=== PATIENT | male | born 1985 | race Caucasian/White ===

== ENCOUNTER → 2019-12-07 18:53 | Outpatient (BNVA) | payer OTHER, SELFPAY | PROVIDERS: Family Provider Nurse Practitioner Family; PCP Nurse Practitioner Family; Visit Provider Nurse Practitioner Family | DX: J02.9 Acute pharyngitis, unspecified (principal); J03.90 Acute tonsillitis, unspecified | CPT/HCPCS: 87081; 87880 ==

== ENCOUNTER → 2020-01-08 13:49 | Outpatient (BNVA) | payer OTHER, SELFPAY | PROVIDERS: Family Provider Nurse Practitioner Family; PCP Nurse Practitioner Family; Visit Provider Nurse Practitioner Family | DX: M54.9 Dorsalgia, unspecified (principal); S39.012A Strain of muscle, fascia and tendon of lower back, initial encounter; X58.XXXA Exposure to other specified factors, initial encounter | CPT/HCPCS: 81003 ==

== ENCOUNTER → 2020-01-18 13:15 | Outpatient (BNVA) | payer OTHER, SELFPAY | PROVIDERS: Family Provider Nurse Practitioner Family; PCP Nurse Practitioner Family; Referring Provider Nurse Practitioner Family; Visit Provider Nurse Practitioner Family | DX: J02.9 Acute pharyngitis, unspecified (principal); H66.92 Otitis media, unspecified, left ear; J06.9 Acute upper respiratory infection, unspecified; B97.89 Other viral agents as the cause of diseases classified elsewhere | CPT/HCPCS: 87081; 87880 ==

== ENCOUNTER → 2020-10-22 11:06 | Outpatient (BNVA) | payer OTHER, SELFPAY | PROVIDERS: Family Provider Nurse Practitioner Family; PCP Nurse Practitioner Family; Visit Provider Urology | DX: R79.89 Other specified abnormal findings of blood chemistry (principal); N52.9 Male erectile dysfunction, unspecified | CPT/HCPCS: 81003; 84403 ==

== ENCOUNTER 2021-01-16 11:50 | Outpatient (CLI) | payer OTHER, SELFPAY ==
--- NOTE | 2021-01-16 11:55 | XR_ITS ---
WS: [id number] XR knee LT 3V* [id number] REASON FOR EXAM: PAIN L KNEE FINDINGS: Moderate narrowing of the medial knee joint space with a shift of the femoral condyles medially. Sign ificant marginal osteophytes of the medial femoral condyle and medial tibial plateau. Previous surgical procedure with large threaded device in the medial metadiaphysis of the tibia with what appears to be a tendon tunnel. Possibly this was in relation to the posterior cruciate as the ch anges are in the posterior tibia on the lateral. There is narrowing of the patellofemoral joint space with significant osteophytes of the patella and medial femoral condyle. XR/XR knee LT 3V* [id number] IMPRESSION: Osteoarthritis and postsurgical change in the left kidney as above.
== END 2021-01-16 11:51 | disposition home or self-care (01) ==
LOC: RAD 11:52
PROVIDERS: PCP Nurse Practitioner Family; Visit Provider Nurse Practitioner Family
DX: M17.12 Unilateral primary osteoarthritis, left knee
CPT/HCPCS: 73562

== ENCOUNTER 2021-04-14 08:49 | Outpatient (CLI) | payer OTHER, SELFPAY ==
--- NOTE | 2021-04-14 09:05 | XR_ITS ---
WS: [id number] Exam: XR chest 2V* [id number] Date/Time of Exam: 04/14/2021 9:21 AM Reason For Exam: ASTHMATIC BRONCHITIS/COUGH Findings: The lungs are clear and fully expanded. Costophrenic angles are sharp. No infiltrates. Bronchovascula r relief appears normal. Cardiac silhouette is unremarkable. Bony elements are intact. XR/XR chest 2V* [id number] IMPRESSION: Unremarkable chest radiograph.
== END 2021-04-14 08:50 | disposition home or self-care (01) ==
PROVIDERS: PCP Nurse Practitioner Family; Visit Provider Nurse Practitioner Family
DX: R05 Cough (principal); J45.909 Unspecified asthma, uncomplicated
CPT/HCPCS: 71046

== ENCOUNTER → 2021-04-22 13:52 | Outpatient (BNVA) | payer OTHER, SELFPAY | PROVIDERS: PCP Nurse Practitioner Family; Visit Provider Urology | DX: Z12.5 Encounter for screening for malignant neoplasm of prostate (principal); R79.89 Other specified abnormal findings of blood chemistry; N52.9 Male erectile dysfunction, unspecified | CPT/HCPCS: 81003; 84403; G0103 ==

== ENCOUNTER 2021-05-11 16:13 | Outpatient (CLI) | payer OTHER, SELFPAY ==
[2021-05-11 16:31] LABS: Basophils # 0.1 10^3/uL (0.0-0.1); Basophils % 0.6 %; Eosinophils # 0.3 10^3/uL (0.0-0.8); Eosinophils % 2.6 %; Hematocrit 53.9 % (42.0-52.0); Hemoglobin 18.4 g/dL (11.7-16.6); Lymphocytes # 2.6 10^3/uL (0.8-4.8); Lymphocytes % 24.4 %; Mean Corpuscular HGB Conc 34.1 g/dL (30.0-36.0); Mean Corpuscular Hemoglobin 32.7 pg (28.0-34.0); Mean Corpuscular Volume 95.7 fL (80-94); Mean Platelet Volume 9.3 fL (7.4-10.4); Monocytes # 0.8 10^3/uL (0.2-0.9); Monocytes % 7.3 %; Neutrophils # 6.83 10^3/uL (1.8-7.7); Neutrophils % 64.6 %; Nucleated Red Blood Cells % 0 %; Platelet Count 213 10^3/cmm (130-400); Red Blood Count 5.63 10^6/uL (4.1-5.3); Red Cell Distribution Width 12.7 % (12.1-15.1); White Blood Count 10.6 10^3/uL (4.0-10.0)
[2021-05-12 17:27] LABS: Alternaria Alternata (M6) Ige <0.10 kU/L; Alternaria Class 0; Bermuda Class 0/1; Bermuda Grass (G2) Ige 0.17 kU/L; Cat Dander (E1) Ige <0.10 kU/L; Cat Dander Class 0; Common Ragweed (Short) (W1) Ig 1.31 kU/L; D. Farinae Class 3; Dermatophagoides Class 3; Dermatophagoides Farinae (D2) 8.45 kU/L; Dog Dander (E5) Ige <0.10 kU/L; Dog Dander Class 0; Elm (T8) Ige <0.10 kU/L; Elm Class 0; English Plantain (W9) Ige 0.12 kU/L; English Plantain Class 0/1; House Dust (Greer) (H1) Ige 0.57 kU/L; House Dust (Hollister- Stier) 0.56 kU/L; House Dust Class 1; Immunoglobulin E 212 kU/L (<OR=114); Immunoglobulin E 223 kU/L (<OR=114); Johnson Grass (G10) Ige 0.36 kU/L; Johnson Grass Cl 1; June Grass Class 2; June Grass(Kentucky Blue) (G8) 1.96 kU/L; Lamb'S Quarters (Goose Foot) 0.28 kU/L; Lamb'S Quarters Class 0/1; Maple (Box Elder) (T1) Ige <0.10 kU/L; Maple Class 0; Meadow Fescue (G4) Ige 2.02 kU/L; Meadow Fescue Class 2; Mucor Racemosus Class 0; Oak (T7) Ige <0.10 kU/L; Oak Class 0; Orchard Grass (Cocksfoot) (G3) 1.79 kU/L; Penicillium Class 0; Penicillium Notatum (M1) Ige <0.10 kU/L; Perennial Rye Grass (G5) Ige 1.89 kU/L; Perennial Rye Grass Class 2; Ragweeed Class 2; Rough Marsh Elder (W16) Ige 0.19 kU/L; Rough Marsh Elder Class 0/1; Sweet Vernal Class 2; Sweet Vernal Grass (G1) Ige 1.83 kU/L; Timothy Grass (G6) Ige 1.83 kU/L; Timothy Grass Class 2
[2021-05-13 20:17] LABS: Aspergillus Fumigatus, Igg Ab, 38.5 mg/L (<=102)
== END 2021-05-11 16:14 | disposition home or self-care (01) ==
LOC: LAB 16:15
PROVIDERS: PCP Nurse Practitioner Family; Visit Provider Internal Medicine Critical Care Medicine
DX: J45.909 Unspecified asthma, uncomplicated (principal); R06.02 Shortness of breath
CPT/HCPCS: 36415; 82785; 85025; 86003

== ENCOUNTER 2021-07-30 14:45 | Outpatient (CLI) | payer OTHER, SELFPAY | END 2021-07-30 14:46 | disposition home or self-care (01) | LOC: SLEEP 14:46 | PROVIDERS: PCP Nurse Practitioner Family; Visit Provider Internal Medicine Critical Care Medicine | DX: G47.10 Hypersomnia, unspecified (principal) | CPT/HCPCS: G0399 ==

== ENCOUNTER 2022-03-26 11:38 | Outpatient (CLI) | payer SELFPAY | END 2022-03-26 11:39 | disposition home or self-care (01) | PROVIDERS: PCP Nurse Practitioner Family; Visit Provider Nurse Practitioner Family | DX: R79.89 Other specified abnormal findings of blood chemistry (principal) | CPT/HCPCS: 84403 ==

== ENCOUNTER → 2023-10-26 08:23 | Outpatient (BNVA) | payer OTHER, SELFPAY | PROVIDERS: PCP Nurse Practitioner Family; Visit Provider Family Medicine Adult Medicine | DX: S69.92XA Unspecified injury of left wrist, hand and finger(s), initial encounter (principal); W29.8XXA Contact with other powered hand tools and household machinery, initial encounter | CPT/HCPCS: 73140 ==

== ENCOUNTER 2023-11-07 06:14 | Emergency (ER) | payer OTHER, SELFPAY ==
[2023-11-07 06:29] VITALS: BP 169/97; PULSE 101; RESP 17; O2SAT 95; BMI 32.5
--- NOTE | 2023-11-07 06:32 | W.ED.GENADLT ---
HPI - General Adult General: Chief complaint: GI Bleed Stated complaint: Blood in stool/when wiping Time Seen by Provider: 11/07/23 06:26 Source: patient Mode of arrival: ambulatory History of Present Illness: 38-year-old male who presents emergency room complaining of bright red blood on toilet paper after a bowel movement. No discoloration of the toilet bowl water. Symptoms began yesterday. No dysuria urgency or frequency. No previous abdominal surgeries no previous colonoscopies. Onset (ago): day(s) (1) Relieving factors: none Exacerbating factors: other (Bowel movement) Associated symptoms: Deny chest pain, confusion, cough, diaphoresis, decreased appetite, dyspnea, fevers/chills, headache(s), malaise, nausea, rash, palpitations, seizures, short of breath, syncope, vomiting or weakness Treatments prior to arrival: none Review of Systems Const: Denies: fever(s), chills, malaise or diaphoresis Card: Denies: chest pain, palpitations or syncope Resp: Denies: dyspnea GI: Reports: hematochezia (Blood onto the paper after wiping); Denies: abdominal pain, nausea or vomiting : Denies: flank pain, dysuria, urinary frequency, urinary urgency or hematuria Musc: Denies: neck pain or back pain Skin/Breast: Denies: rash Neuro: Denies: headache(s) or confusion PFSH ED PFSH: Medical History Injury of finger of left hand Erectile dysfunction of organic origin On SILDENAFIL with no contraindications. Benefit noted. Low testosterone in male On TRT 200 mg every 10 to 14 days with good response and safe laboratory level in follow-up. Surgical History Hx of left knee surgery Family History Father Suicide Social History Smoking and tobacco/nicotine status: current every day tobacco/nicotine user cigarettes Packs smoked per day: 0.5 Years cigarettes smoked: 20 Second hand smoke exposure: Yes Alcohol intake: current Alcohol intake frequency: few times a week Alcohol type: beer and hard liquor Substance/Drug Use: never Adopted: No Caregiver/support person: No Lives independently: Yes Marital status: Current occupational status: employed Do you think of yourself as: Straight/Heterosexual Current gender identity: Male Physical Exam Const: COMMON NORMALS: no acute distress GENERAL APPEARANCE: cooperative and comfortable ORIENTATION/CONSCIOUSNESS: Yes awake, Yes oriented to person, Yes oriented to place and Yes oriented to time HENMT: COMMON NORMALS: normocephalic, atraumatic and hearing grossly normal bilaterally HEAD & SCALP: normocephalic and atraumatic Resp: COMMON NORMALS: normal respiratory effort, No retractions, No use of accessory muscles and clear to auscultation bilaterally AUSCULTATION: clear to auscultation bilaterally Cardio: COMMON NORMALS: regular rate, regular rhythm and No murmurs present (Cardio) RATE: regular rate RHYTHM: regular rhythm GI: COMMON NORMALS: Soft to palpation and No hepatosplenomegaly present AUSCULTATION: Yes normoactive bowel sounds PALPATION: Yes Soft to palpation, No Tenderness to palpation present (GI), No Guarding due to palpation present (GI) and Yes No hepatosplenomegaly present : OTHER: Examination of the rectum small anal fissure at the 6 o'clock position no active bleeding small hemorrhoidal tag and no swollen or thrombosed hemorrhoids no actively bleeding hemorrhoids Extremity: COMMON NORMALS: normal to inspection, capillary refill normal, no clubbing, cyanosis or edema, no calf tenderness and no pedal edema Neuro: SENSORIUM/ORIENTATION: Yes oriented to person, Yes oriented to place and Yes oriented to time Skin: COMMON NORMALS: no rashes or lesions noted GENERAL SKIN EXAM: no rashes or lesions noted Course Vital Signs: Vital signs: Vital Signs Pulse Rate 101 H 11/07/23 06:29 Respiratory Rate 18 11/07/23 06:54 Blood Pressure 167/97 11/07/23 06:54 Pulse Oximetry 91 11/07/23 06:54 Oxygen Delivery Me thod Room Air 11/07/23 06:54 MDM - General Adult Medical Decision Making Small rectal fissure noted at the 6 o'clock position on exam it is partially healed. This could be the source of bleeding he could also have mild diverticuli he has not previously to colonoscopy. He is currently on amoxicillin for recently diagnosed strep pharyngitis. Will switch him to Augmentin. His hemoglobin is stable at this point. Will discharge the patient home and have him follow-up with his primary care doctor in a few weeks to evaluate for the possibility of colonoscopy. Continue all other medications. Medical Records I reviewed the patient's medical records. Lab Data I reviewed the patient's lab results. 11/07/23 06:40 11/07/23 06:40 Laboratory Results WBC 17.15 10^3/uL (3.29-11.43) H 11/07/23 06:40 RBC 5.41 10^6/uL (3.85-5.65) 11/07/23 06:40 Hgb 15.90 g/dL (11.27-16.99) 11/07/23 06:40 Hct 48.0 % (37-53) 11/07/23 06:40 MCV 88.7 fl (82-101) 11/07/23 06:40 MCH 29.4 pg (27-33) 11/07/23 06:40 MCHC 33.1 g/dL (30-55) 11/07/23 06:40 RDW 12.7 % (12.1-15.1) 11/07/23 06:40 Plt Count 335 10^3/cmm (157-399) 11/07/23 06:40 MPV 9.3 fL (7.4-10.4) 11/07/23 06:40 Neut % (Auto) 85.2 % 11/07/23 06:40 Lymph % (Auto) 9.5 % 11/07/23 06:40 Becker % (Auto) 4.3 % 11/07/23 06:40 Eos % (Auto) 0.0 % 11/07/23 06:40 Baso % (Auto) 0.2 % 11/07/23 06:40 Neut # (Auto) 14.62 10^3/uL (1.8-7.7) H 11/07/23 06:40 Lymph # (Auto) 1.6 10^3/uL (0.8-4.8) 11/07/23 06:40 Becker # (Auto) 0.7 10^3/uL (0.2-0.9) 11/07/23 06:40 Eos # (Auto) 0.0 10^3/uL (0.0-0.8) 11/07/23 06:40 Baso # (Auto) 0.0 10^3/uL (0.0-0.1) 11/07/23 06:40 Nucleated RBC % (auto) 0 % 11/07/23 06:40 Nucleated RBCs # 0.0 /100WBC 11/07/23 06:40 Sodium 137 mmol/L (136-145) 11/07/23 06:40 Potassium 4.3 mmol/L (3.5-5.1) 11/07/23 06:40 Chloride 103 mmol/L (98-107) 11/07/23 06:40 Carbon Dioxide 26 mmol/L (22-29) 11/07/23 06:40 Anion Gap 12.3 (5-19) 11/07/23 06:40 Creatinine 0.9 mg/dL (0.7-1.2) 11/07/23 06:40 GFR Calculation 93.5 mL/min (90-130) 11/07/23 06:40 Calculated Osmolality 292 mOsm/kg (285-295) 11/07/23 06:40 Calcium 10.3 mg/dL (8.5-10.5) 11/07/23 06:40 Total Bilirubin 0.3 mg/dL (0.15-1.2) 11/07/23 06:40 AST 13 U/L (0-40) 11/07/23 06:40 ALT 22 U/L (0-41) 11/07/23 06:40 Alkaline Phosphatase 58 U/L (40-130) 11/07/23 06:40 Total Protein 6.9 g/dL (6.6-8.7) 11/07/23 06:40 Albumin 4.2 g/dL (3.5-5.2) 11/07/23 06:40 Globulin 2.7 g/dL (1.3-4.6) 11/07/23 06:40 No radiology studies performed this visit Discharge Plan Discharge Patient Disposition: Home Clinical Impression: Rectal bleeding, Anal fissure Condition: Stable Prescriptions: New amoxicillin-pot clavulanate 875-125 mg tablet 1 tab PO BID Qty: 20 0RF Discontinued amoxicillin 875 mg tablet 875 mg PO BID 10 Days Qty: 20 0RF No Action aspirin [Adult Low Dose Aspirin] 81 mg tablet,delayed release (DR/EC) 81 mg PO DAILY carvedilol 3.125 mg tablet 3.125 mg PO BID Rx Instructions: must administer with a meal/food isosorbide dinitrate 30 mg tablet 30 mg PO BID Rx Instructions: allow nitrate-free interval of 12-14 hrs per 24-hr period pantoprazole [Protonix] 40 mg tablet,delayed release (DR/EC) 40 mg PO DAILY hydrochlorothiazide 25 mg tablet 25 mg PO DAILY ranolazine 500 mg tablet extended release 12 hr 500 mg PO BID prasugrel 10 mg tablet 10 mg PO DAILY naproxen 500 mg tablet 500 mg PO BID PRN (Reason: pain/swelling) Qty: 30 0RF Discharge Orders: Discharge ED (Routine); Ordered 11/07/23 Ordered By: Arturo Cote Referrals: Rossana Santana APN [Primary Care Provider] - Discharge Diet: Usual diet Discharge Activity: Resume usual activity Patient Instructions: Opioid Safety, Pain Management Activity Restrictions/Additional Instructions: Thank you for choosing [facility] for your healthcare needs today. Please realize this is an emergency room and that we are providing you with a medical screening exam and this may not be complete and all inclusive of all the testing and or work up that you may need to determine your ailment or severity of your illness. It is very important that you follow up as instructed or that you return to the Emergency Department should you have concerns or if your condition changes or worsens in any way. You are seen today with complaint of rectal bleeding. There is a small anal fissure that is likely the source (split in the skin at the rectum). It could also be from diverticuli your white count was mildly elevated. You reported you also been seen for strep pharyngitis the elevation of white count could be from this as well. Would recommend you change from plain amoxicillin to Augmentin (amoxicillin clavulanic acid) this will cover both strep and the possibility of diverticulitis. Follow-up with your primary care doctor within the next few weeks to see about having a colonoscopy done if felt appropriate. Coding Level of Care Code ED [employer] Specialist for Gael Nino
[2023-11-07 06:47] LABS: Basophils % 0.2 %; Lymphocytes # 1.6 10^3/uL (0.8-4.8); Lymphocytes % 9.5 %; Mean Corpuscular HGB Conc 33.1 g/dL (30-55); Mean Corpuscular Hemoglobin 29.4 pg (27-33); Mean Corpuscular Volume 88.7 fl (82-101); Mean Platelet Volume 9.3 fL (7.4-10.4); Monocytes # 0.7 10^3/uL (0.2-0.9); Monocytes % 4.3 %; Neutrophils # 14.62 10^3/uL (1.8-7.7); Neutrophils % 85.2 %; Nucleated Red Blood Cells % 0 %; Platelet Count 335 10^3/cmm (157-399); Red Blood Count 5.41 10^6/uL (3.85-5.65); Red Cell Distribution Width 12.7 % (12.1-15.1); White Blood Count 17.15 10^3/uL (3.29-11.43)
[2023-11-07 06:54] VITALS: BP 167/97; RESP 18; O2SAT 91
[2023-11-07 07:16] LABS: Alanine Aminotransferase 22 U/L (0-41); Albumin Level 4.2 g/dL (3.5-5.2); Alkaline Phosphatase 58 U/L (40-130); Anion Gap 12.3 (5-19); Aspartate Amino Transferase 13 U/L (0-40); Blood Urea Nitrogen 21 mg/dL (6-20); Calcium 10.3 mg/dL (8.5-10.5); Carbon Dioxide 26 mmol/L (22-29); Chloride 103 mmol/L (98-107); Globulin 2.7 g/dL (1.3-4.6); Glomerular Filtration Rate 93.5 mL/min (90-130); Glucose 187 mg/dL (65-115); Osmolality Calculated 292 mOsm/kg (285-295); Potassium 4.3 mmol/L (3.5-5.1); Sodium 137 mmol/L (136-145); Total Bilirubin 0.3 mg/dL (0.15-1.2); Total Protein 6.9 g/dL (6.6-8.7)
[2023-11-07 07:24] VITALS: BP 121/87; PULSE 81; O2SAT 97
== END 2023-11-07 07:41 | disposition home or self-care (01) ==
PROVIDERS: Emergency Provider Family Medicine; PCP Nurse Practitioner Family
DX: K60.2 Anal fissure, unspecified (principal); K62.5 Hemorrhage of anus and rectum; Z79.82 Long term (current) use of aspirin; F17.210 Nicotine dependence, cigarettes, uncomplicated
CPT/HCPCS: 80053; 85025; 99283

== ENCOUNTER → 2023-12-01 15:31 | Outpatient (BNVA) | payer OTHER, SELFPAY | PROVIDERS: PCP Nurse Practitioner Family; Visit Provider Nurse Practitioner Family | DX: R05.9 Cough, unspecified (principal) | CPT/HCPCS: 87400; 87426 ==

== ENCOUNTER 2024-01-04 06:58 | Day surgery (SDC) | payer OTHER, SELFPAY ==
[2024-01-04 07:08] VITALS: BP 138/98; PULSE 89; RESP 16; TEMP 36.7; O2SAT 94; BMI 32.3
[2024-01-04] MEDS: sodium chloride 0.9% 1,000 ML 30 ML IV (07:22)
--- NOTE | 2024-01-04 07:27 | ANES.PREANE2 ---
Pre-Anesthetic Assessment Height/Weight: Height 1.68 m Weight 90.718 kg Temp Pulse Resp BP Pulse Ox O2 Del Method 98.1 F 89 16 138/98 94 Room Air 01/04/24 07:08 01/04/24 07:08 01/04/24 07:08 01/04/24 07:08 01/04/24 07:08 01/04/24 07:08 Operation Date: 01/04/24 08:00 Proposed Procedures p EGD(Not Applicable) - [place] [id number] egd [id number] colonoascopy G0105 screen colon h risk K92.1,K92.2(Not Applicable) - Daniel Gibson DO Was Beta Ana Maria taken within 24 hours: N/A Was Clonidine taken within 24 hours: N/A Last intake: Intake Last Liquid Date 01/03/24 Last Liquid Time 23:30 Last Solid Date 01/02/24 Last Solid Time 22:00 Social No tobacco Exam alert and oriented x 3 Airway Submandibular: within normal limits Cervical ROM: within normal limits Mallampati: Class II Dentition: full History/ROS No significant history except as noted and No significant complaints Pulmonary Exertional Dyspnea CV/HEM Coronary Artery Disease and Hypertension Single coronary stent placed 1-2 yrs ago. Has cardiac clearance letter from [facility]. Metabolic Hyperlipidemia Anesthetic Plan ASA status: 3 Anesthesia: MAC Risk of > 500 ml blood loss (7ml/kg in children): No Medications/Allergies Home Medications Medication Instructions Recorded Confirmed Last Taken Type aspirin 81 mg tablet,delayed 81 mg PO DAILY 06/29/23 01/04/24 01/02/24 History release (Adult Low Dose Aspirin) hydrochlorothiazide 25 mg tablet 25 mg PO DAILY 06/29/23 01/02/24 01/02/24 History isosorbide dinitrate 30 mg tablet 30 mg PO BID 06/29/23 01/02/24 01/02/24 History prasugrel 10 mg tablet 10 mg PO DAILY 06/29/23 01/02/24 12/31/23 History pantoprazole 40 mg tablet,delayed 40 mg PO BID 6 weeks #84 tabs 12/08/23 01/02/24 01/02/24 Rx release (Protonix) albuterol sulfate 90 mcg/actuation 2 puff inhalation QID PRN 01/02/24 01/02/24 12/30/23 History aerosol inhaler Shortness Of Breath Or Wheezing cetirizine 10 mg tablet 10 mg PO DAILY 01/02/24 01/02/24 01/02/24 History olmesartan 20 mg tablet 20 mg PO DAILY 01/02/24 01/02/24 01/02/24 History ondansetron 4 mg disintegrating 4 mg PO QID PRN Nausea And Vomiting 01/02/24 01/02/24 Unknown History tablet ranolazine 1,000 mg 1,000 mg PO BID 01/02/24 01/02/24 01/02/24 History tablet,extended release,12 hr rosuvastatin 40 mg tablet 40 mg PO DAILY 01/02/24 01/02/24 01/02/24 History Allergies Allergy/AdvReac Type Severity Reaction Status Date / Time morphine Allergy rash Verified 12/08/23 09:29 Current Medications Generic Name Dose Route Start Last Admin Trade Name Freq PRN Reason Stop Dose Admin Sodium Chloride 1,000 mls @ 30 mls/hr 01/04/24 06:30 01/04/24 07:22 Sodium Chloride 0.9% IV 01/05/24 06:29 30 mls/hr .Q24H KHLOE Administration PFSH Anesthesia Medical History Injury of finger of left hand Erectile dysfunction of organic origin On SILDENAFIL with no contraindications. Benefit noted. Low testosterone in male On TRT 200 mg every 10 to 14 days with good response and safe laboratory level in follow-up. Surgical History Hx of left knee surgery Family History Father Suicide Social History Smoking and tobacco/nicotine status: current every day tobacco/nicotine user cigarettes Packs smoked per day: 0.5 Years cigarettes smoked: 20 Second hand smoke exposure: Yes Alcohol intake: current Alcohol intake frequency: few times a week Alcohol type: beer and hard liquor Substance/Drug Use: never Adopted: No Caregiver/support person: No Lives independently: Yes Marital status: Current occupational status: employed Do you think of yourself as: Straight/Heterosexual Current gender identity: Male Data Anesthesia Cardiac Studies: No Data to Display
--- NOTE | 2024-01-04 07:34 | W.PM.OPSUD ---
Surgery/Procedure H&P Update DATE OF PROCEDURE: January 04, 2024 DATE H&P PERFORMED: 12/08/23 H&P UPDATE INFORMATION: I have reviewed H&P completed within last 30 days, I have examined patient prior to procedure and No changes to prior documentation PLANNED PROCEDURE: Operation Date: 01/04/24 08:00 Proposed Procedures p EGD(Not Applicable) - [place] s [id number] egd [id number] colonoascopy G0105 screen colon h risk K92.1,K92.2(Not Applicable) - Daniel Gibson DO
[2024-01-04 08:05] VITALS: BP 106/80; PULSE 80; RESP 14; TEMP 36.2; O2SAT 92
[2024-01-04 08:20] VITALS: BP 118/98; PULSE 80; RESP 14; O2SAT 92
[2024-01-04 08:33] VITALS: BP 127/89; PULSE 92; RESP 18; O2SAT 96
--- NOTE | 2024-01-04 14:55 | ANE.PACU2 ---
Inpatient post-anesthesia follow up: Vital signs: Temperature 97.1 F Pulse Rate 92 Respiratory Rate 18 Blood Pressure 127/89 Pulse Oximetry 96 Oxygen Delivery Me thod Room Air Oxygen Flow Rate 2 Fraction of Inspir ed Oxygen Additional Comments: no apparent anesthetic complications noted
== END 2024-01-04 08:46 | disposition home or self-care (01) ==
PROVIDERS: PCP Nurse Practitioner Family; Visit Provider Surgery
PROC: 0DJ08ZZ Inspection of Upper Intestinal Tract, Via Natural or Artificial Opening Endoscopic (ICD-10-PCS; CPT 43235; principal; 2024-01-04 08:00)
PROC: 0DJD8ZZ Inspection of Lower Intestinal Tract, Via Natural or Artificial Opening Endoscopic (ICD-10-PCS; CPT 45378; 2024-01-04 08:00)
DX: K92.1 Melena (principal); K29.50 Unspecified chronic gastritis without bleeding; I25.10 Atherosclerotic heart disease of native coronary artery without angina pectoris; I10 Essential (primary) hypertension; Z95.5 Presence of coronary angioplasty implant and graft; E78.5 Hyperlipidemia, unspecified; Z79.82 Long term (current) use of aspirin; F17.210 Nicotine dependence, cigarettes, uncomplicated
CPT/HCPCS: 43239; 45378; 88305; J2704; J7030

== ENCOUNTER 2024-02-18 08:26 | Emergency (ER) | payer OTHER, SELFPAY ==
--- NOTE | 2024-02-18 08:35 | XRR_ITS ---
PROCEDURE INFORMATION: Exam: XR Left Hand Exam date and time: 02/18/2024 9:01 AM Age: 38 years old Clinical indication: Patient HX: Patient states yesterday left hand started throbbing and burning, pain on lateral side of hand near thumb TECHNIQUE: Imaging protocol: Radiologic exam of the left hand. Views: 3 or more views. COMPARISON: No relevant prior studies available. FINDINGS: Bones/joints: No acute fracture or dislocation identified. Likely accessory ossicles adjacent to pisiform noted. Soft tissues: Normal. XR/XR hand LT min 3V* [id number] IMPRESSION: No acute findings.
[2024-02-18 08:58] VITALS: BP 125/80; PULSE 84; RESP 14; O2SAT 95
--- NOTE | 2024-02-18 09:48 | W.ED.EXTPRO ---
HPI - Extremity Problem General: Chief complaint: Extremity Problem,Nontraumatic Stated complaint: left hand pain Time Seen by Provider: 02/18/24 08:28 Source: patient Mode of arrival: ambulatory History of Present Illness: 38-year-old male presents emergency room with complaint of left wrist pain. 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 No direct injury no previous injury no trauma or fall. No previous surgery to that wrist MD Complaint: extremity pain Onset (ago): day(s) Pain Consistency: constant Location: left and upper extremity Quality: sharp Radiation: proximal Relieving factors: rest Exacerbating factors: range of motion and palpation PFSH ED PFSH: Medical History Injury of finger of left hand Erectile dysfunction of organic origin On SILDENAFIL with no contraindications. Benefit noted. Low testosterone in male On TRT 200 mg every 10 to 14 days with good response and safe laboratory level in follow-up. Surgical History Hx of left knee surgery Family History Father Suicide Social History Smoking and tobacco/nicotine status: current every day tobacco/nicotine user cigarettes Packs smoked per day: 0.5 Years cigarettes smoked: 20 Second hand smoke exposure: Yes Alcohol intake: current Alcohol intake frequency: few times a week Alcohol type: beer and hard liquor Substance/Drug Use: never Adopted: No Caregiver/support person: No Lives independently: Yes Marital status: Current occupational status: employed Do you think of yourself as: Straight/Heterosexual Current gender identity: Male Physical Exam Narrative: EXAM NARRATIVE: Examination of the left wrist patient has a positive Aniya's test no deformities Tinel's Phalen's are negative neurovascularly intact no pain with palpation along the digits over the carpal joints just at the extensor tendon. Course Vital Signs: Vital signs: Vital Signs Pulse Rate 80 02/18/24 10:27 Respiratory Rate 16 02/18/24 10:27 Blood Pressure 124/79 02/18/24 10:27 Pulse Oximetry 96 02/18/24 10:27 Oxygen Delivery Me thod Room Air 02/18/24 08:58 MDM - Extremity (Nontraumatic) Medical Decision Making Dequerveness tenosynovitis. Treated with steroids patient declines anti-inflammatories discussed the nature of the injury. It is an overuse injury should try to rest will try modest steroid taper. Follow-up with his primary care doctor. Lab Data Radiology Impressions Hand X-Ray 02/18/24 08:35 IMPRESSION: No acute findings. All radiology interpretation(s) finalized by discharge Discharge Plan Discharge Patient Disposition: Home Clinical Impression: De Quervain's tenosynovitis Condition: Stable Prescriptions: New prednisone 20 mg tablet 20 mg PO TID Qty: 15 0RF Rx Instructions: 1 p.o. 3 times daily x3 days, 1 p.o. twice daily x2 days, 1 p.o. daily x2 days No Action aspirin [Adult Low Dose Aspirin] 81 mg tablet,delayed release (DR/EC) 81 mg PO DAILY isosorbide dinitrate 30 mg tablet 30 mg PO BID Rx Instructions: allow nitrate-free interval of 12-14 hrs per 24-hr period hydrochlorothiazide 25 mg tablet 25 mg PO DAILY prasugrel 10 mg tablet 10 mg PO DAILY pantoprazole [Protonix] 40 mg tablet,delayed release (DR/EC) 40 mg PO BID 42 Days Qty: 84 1RF cetirizine 10 mg tablet 10 mg PO DAILY albuterol sulfate 90 mcg/actuation HFA aerosol inhaler 2 puff INHALATION QID PRN (Reason: Shortness Of Breath Or Wheezing) ondansetron 4 mg tablet,disintegrating 4 mg PO QID PRN (Reason: Nausea And Vomiting) olmesartan 20 mg tablet 20 mg PO DAILY rosuvastatin 40 mg tablet 40 mg PO DAILY ranolazine 1,000 mg tablet extended release 12 hr 1,000 mg PO BID Discharge Orders: Discharge ED (Routine); Ordered 02/18/24 Ordered By: Arturo Cote Referrals: Rossana Santana APN [Primary Care Provider] - Discharge Diet: Usual diet Discharge Activity: Resume usual activity Patient Instructions: Tenosynovitis (ED), Opioid Safety, Pain Management Activity Restrictions/Additional Instructions: Thank you for choosing [facility] for your healthcare needs today. Please realize this is an emergency room and that we are providing you with a medical screening exam and this may not be complete and all inclusive of all the testing and or work up that you may need to determine your ailment or severity of your illness. It is very important that you follow up as instructed or that you return to the Emergency Department should you have concerns or if your condition changes or worsens in any way. Coding Level of Care Code ED Director [employer] Management for Gael Nino
[2024-02-18 10:27] VITALS: BP 124/79; PULSE 80; RESP 16; O2SAT 96
== END 2024-02-18 10:28 | disposition home or self-care (01) ==
PROVIDERS: Emergency Provider Family Medicine; PCP Nurse Practitioner Family
DX: M65.4 Radial styloid tenosynovitis [de Quervain] (principal); Z79.82 Long term (current) use of aspirin; F17.210 Nicotine dependence, cigarettes, uncomplicated
CPT/HCPCS: 73130; 99283

== ENCOUNTER → 2024-02-19 11:16 | Outpatient (BNVA) | payer OTHER, SELFPAY | PROVIDERS: PCP Nurse Practitioner Family; Visit Provider Nurse Practitioner | DX: J02.9 Acute pharyngitis, unspecified (principal); K13.79 Other lesions of oral mucosa | CPT/HCPCS: 87880 ==

== ENCOUNTER 2024-05-14 21:32 | Emergency (ER) | payer OTHER, SELFPAY ==
[2024-05-14 21:34] VITALS: BP 133/80; PULSE 72; RESP 18; TEMP 36.4; O2SAT 95; BMI 32.3
--- NOTE | 2024-05-14 21:36 | XRR_ITS ---
PROCEDURE INFORMATION: Exam: XR Chest Exam date and time: 05/14/2024 9:40 PM Age: 38 years old Clinical indication: Pain; Chest pressure; Additional info: Cp TECHNIQUE: Imaging protocol: Radiologic exam of the chest. Views: 1 view. COMPARISON: CR XR chest 2V* [id number] 04/14/2021 9:23 AM FINDINGS: Lungs: Unremarkable. No consolidation. Pleural spaces: Unremarkable. No pleural effusion. No pneumothorax. Heart/Mediastinum: Unremarkable. No cardiomegaly. Bones/joints: Unremarkable. XR/XR chest 1V portable [id number] IMPRESSION: No acute findings.
--- NOTE | 2024-05-14 21:37 | ED_ITS ---
HPI - Chest Pain 2 General: Chief Complaint: Chest Pain Stated Complaint: CP Time Seen by Provider: 05/14/24 21:33 Source: patient and EMS Mode of arrival: EMS Limitations: no limitations History of Present Illness: Patient is a 38-year-old male past medical history of coronary artery disease with stents placed 2 years ago, and congestive heart failure who presents to the emergency department via ambulance complaining of chest pain onset tonight. Patient states he also has a history of GERD and has been having terrible indigestion throughout the day, he has taken omeprazole, Tums, and Protonix with no relief. He states that just prior to arrival and prior to calling ambulance, he had left-sided chest pain with sudden onset, nonradiating, and did note relief after taking 3 nitro. He he says that he follows cardiology in [place]. He is also noting some associated shortness of breath at this time. He is diaphoretic on arrival, EMS states that they did give him 324 of baby aspirin. EKG at this time does not show any signs of STEMI, normal sinus rhythm rate 95. He still states that his pain is present, is a 6/10 at this time. MD complaint: chest pain Pertinent past history: coronary artery disease and prior MS Onset (ago): hour(s) Timing of current episode: constant and still present Prior episodes: Yes Onset: during rest Pain location: left chest Pain radiation: none Severity: moderate Quality: tightness Relieving factors: nitroglycerin Associated symptoms: Reports diaphoresis and dyspnea; Deny abdominal pain, fever(s), nausea, palpitations or vomiting Treatment prior to arrival: aspirin and nitroglycerin Review of Systems 2 General: Reports: 10 or more systems reviewed and unremarkable except in HPI and below Const: Reports: diaphoresis; Denies: fever(s), chills or fatigue Eyes: Denies: change in vision ENMT: Denies: throat pain, ear or mastoid pain or nasal discharge Card: Reports: chest pain; Denies: palpitations, swelling of feet/ankles or lightheadedness Resp: Reports: dyspnea; Denies: productive cough or wheezing GI: Reports: heartburn; Denies: abdominal pain, nausea, vomiting, diarrhea or constipation : Denies: flank pain, difficulty urinating, dysuria or urinary frequency Musc: Denies: neck pain, back pain or joint pain Skin/Breast: Denies: rash Neuro: Denies: headache(s), numbness in extremities or weakness in extremities PFSH ED 2 PFSH: Medical History Injury of finger of left hand Erectile dysfunction of organic origin On SILDENAFIL with no contraindications. Benefit noted. Low testosterone in male On TRT 200 mg every 10 to 14 days with good response and safe laboratory level in follow-up. Surgical History Hx of left knee surgery Family History Father Suicide Social History Smoking and tobacco/nicotine status: unknown if used tobacco/nicotine Second hand smoke exposure: Yes Alcohol intake: current Alcohol intake frequency: few times a week Alcohol type: beer and hard liquor Substance/Drug Use: never Adopted: No Caregiver/support person: No Lives independently: Yes Marital status: Current occupational status: employed Do you think of yourself as: Straight/Heterosexual Current gender identity: Male Physical Exam 2 Const: COMMON NORMALS: patient oriented x3 and no limitations GENERAL APPEARANCE: cooperative, well developed, anxious and diaphoretic O RIENTATION/CONSCIOUSNESS: Yes awake, Yes oriented to person, Yes oriented to place and Yes oriented to time HENMT: COMMON NORMALS: normocephalic, atraumatic and hearing grossly normal bilaterally HEAD & SCALP: normocephalic and atraumatic Eye: COMMON NORMALS: Equal, round and reactive pupils present, EOMs intact bilaterally and conjunctivae normal CONJUNCTIVA: Yes conjunctivae normal P UPIL: Yes Equal, round and reactive pupils present Neck/C-Spine: COMMON NORMALS: full ROM, supple and no JVD Chest: COMMONS NORMALS: normal inspection of the chest and normal palpation of entire chest wall Resp: COMMON NORMALS: normal respiratory effort, No retractions, No use of accessory muscles and clear to auscultation bilaterally AUSCULTATION: clear to auscultation bilaterally Cardio: COMMON NORMALS: no JVD, regular rate, regular rhythm, No clicks present (Cardio), No murmurs present (Cardio) and No rub (Cardio) RATE: r egular rate RHYTHM: regular rhythm GI: COMMON NORMALS: Normal to inspection, nondistended, normoactive bowel sounds present, Soft to palpation and non-tender AUSCULTATION: Yes normoactive bowel sounds PALPATION: Yes Soft to palpation RECTAL EXAM: Yes deferred Extremity: COMMON NORMALS: normal to inspection, full ROM and capillary refill normal Neuro: COMMON NORMALS: patient oriented x3, moves all extremities, no focal motor deficits and no sensory deficits noted SENSORIUM/ORIENTATION: Yes oriented to person, Yes oriented to place and Yes oriented to time Psych: COMMON NORMALS: mental status grossly normal and Normal thought process present THOUGHT PROCESS: Normal thought process present Skin: COMMON NORMALS: no rashes or lesions noted GENERAL SKIN EXAM: no rashes or lesions noted Course 2 Vital Signs: Vital signs: Vital Signs Temperature 97.6 F 05/14/24 21:34 Pulse Rate 79 05/15/24 00:00 Respiratory Rate 18 05/15/24 00:00 Blood Pressure 145/83 05/15/24 00:00 Pulse Oximetry 95 05/15/24 00:00 Oxygen Delivery Me thod Room Air 05/14/24 23:00 MDM - Chest Pain Medical Decision Making Patient presented by ambulance due to acute onset of left sided chest pain with no radiation. Reported history of stent placement 2 years ago, as well as heart failure. Diaphoretic on examination, he was given 3 nitro and baby aspirin prior to arrival. His initial EKG did not demonstrate any signs of STEMI. He does also have history of GERD and has been taking multiple medications for throughout the day with minimal relief. Basic lab work nondiagnostic, his baseline troponin was 20, repeat troponin 19.5 and does not indicate any signs of NSTEMI at this time. His BNP was negative. Chest x-ray negative. Initially he was given a GI cocktail which did not overtly improve his symptoms, and then was given Toradol to treat any potential musculoskeletal etiology. He states improvement of the pain, however is still present. Despite this, and due to his negative workup, I have very low suspicion at this time that his pain is cardiac in nature. He also has a follow-up with cardiology later this week as states they called them, and he is to follow-up as an outpatient to continue further evaluation. Care of patient, including close initial and repeat EKG review, was discussed with Dr. White, who agrees with workup and plan for discharge at this time with close outpatient follow-up. I also did thoroughly have a discussion with the patient and spouse in regards to reasons to return, such that his pain worsens or he develops any shortness of breath or other concerning symptoms. They are comfortable with discharge home at this time. Lab Data 05/14/24 22:19 05/14/24 22:19 Radiology Impressions Chest X-Ray 05/14/24 21:36 IMPRESSION: No acute findings. Laboratory Results WBC 14.59 10^3/uL (3.29-11.43) H 05/14/24 22:19 RBC 5.59 10^6/uL (3.85-5.65) 05/14/24 22:19 Hgb 16.10 g/dL (11.27-16.99) 05/14/24 22:19 Hct 49.6 % (37-53) 05/14/24 22:19 MCV 88.7 fl (82-101) 05/14/24 22:19 MCH 28.8 pg (27-33) 05/14/24 22:19 MCHC 32.5 g/dL (30-55) 05/14/24 22:19 RDW 14.4 % (12.1-15.1) 05/14/24 22:19 Plt Count 268 10^3/cmm (157-399) 05/14/24 22:19 MPV 9.8 fL (7.4-10.4) 05/14/24 22:19 Neut % (Auto) 78.9 % 05/14/24 22:19 Lymph % (Auto) 11.8 % 05/14/24 22:19 Cochran % (Auto) 8.1 % 05/14/24 22:19 Eos % (Auto) 0.1 % 05/14/24 22:19 Baso % (Auto) 0.3 % 05/14/24 22:19 Neut # (Auto) 11.51 10^3/uL (1.8-7.7) H 05/14/24 22:19 Lymph # (Auto) 1.7 10^3/uL (0.8-4.8) 05/14/24 22:19 Cochran # (Auto) 1.2 10^3/uL (0.2-0.9) H 05/14/24 22:19 Eos # (Auto) 0.0 10^3/uL (0.0-0.8) 05/14/24 22:19 Baso # (Auto) 0.1 10^3/uL (0.0-0.1) 05/14/24 22:19 Nucleated RBC % (auto) 0 % 05/14/24 22:19 Nucleated RBCs # 0.0 /100WBC 05/14/24 22:19 Sodium 138 mmol/L (136-145) 05/14/24 22:19 Potassium 3.9 mmol/L (3.5-5.1) 05/14/24 22:19 Chloride 102 mmol/L (98-107) 05/14/24 22:19 Carbon Dioxide 21 mmol/L (22-29) L 05/14/24 22:19 Anion Gap 18.9 (5-19) 05/14/24 22:19 BUN 21 mg/dL (6-20) H 05/14/24 22:19 Creatinine 1.0 mg/dL (0.7-1.2) 05/14/24 22:19 GFR Calculation 82.8 mL/min (90-130) L 05/14/24 22:19 Glucose 210 mg/dL (65-115) H 05/14/24 22:19 Calculated Osmolality 295 mOsm/kg (285-295) 05/14/24 22:19 Calcium 9.1 mg/dL (8.5-10.5) 05/14/24 22:19 Total Bilirubin 0.3 mg/dL (0.15-1.2) 05/14/24 22:19 AST 21 U/L (0-40) 05/14/24 22:19 ALT 38 U/L (0-41) 05/14/24 22:19 Alkaline Phosphatase 72 U/L (40-130) 05/14/24 22:19 Troponin T Baseline 20 ng/L (0-15) H 05/14/24 22:19 Troponin T 120 Minute 19.50 ng/L (0-15) H 05/15/24 00:29 Delta Troponin T -0.50 ABS# (0-10) L 05/15/24 00:29 NT-Pro-B Natriuret Pep < 36 pg/mL (0-125) 05/14/24 22:19 Total Protein 6.9 g/dL (6.6-8.7) 05/14/24 22:19 Albumin 4.1 g/dL (3.5-5.2) 05/14/24 22:19 Globulin 2.8 g/dL (1.3-4.6) 05/14/24 22:19 All radiology interpretation(s) finalized by discharge EKG Data EKG 1: I personally reviewed and interpreted this EKG as follows: EKG interpretation date: 05/15/24 EKG interpretation time: 21:39 Prior EKG tracings: available for review Interpretation: Normal sinus rhythm. Rate 95. No STEMI. EKG 2: I personally reviewed and interpreted this EKG as follows: EKG interpretation date: 05/15/24 EKG interpretation time: 00:35 Prior EKG tracings: available for review Interpretation: Normal sinus rhythm. Rate 70. No STEMI. Discharge Plan Discharge Patient Disposition: Home Clinical Impression: Atypical chest pain Condition: Stable Prescriptions: No Action prednisone 20 mg tablet 60 mg PO DAILY 5 Days Qty: 15 0RF albuterol sulfate 90 mcg/actuation HFA aerosol inhaler 2 puff INHALATION QID PRN (Reason: Shortness Of Breath Or Wheezing) Qty: 8.5 0RF fluticasone propionate [Flonase Allergy Relief] 50 mcg/actuation spray,suspension 2 spray intranasal BID Qty: 16 0RF Rx Instructions: administer into each nostril cetirizine [Zyrtec] 10 mg tablet 10 mg PO DAILY Qty: 30 0RF aspirin [Adult Low Dose Aspirin] 81 mg tablet,delayed release (DR/EC) 81 mg PO DAILY isosorbide dinitrate 30 mg tablet 30 mg PO BID Rx Instructions: allow nitrate-free interval of 12-14 hrs per 24-hr period hydrochlorothiazide 25 mg tablet 25 mg PO DAILY prasugrel 10 mg tablet 10 mg PO DAILY pantoprazole [Protonix] 40 mg tablet,delayed release (DR/EC) 40 mg PO BID 42 Days Qty: 84 1RF metoprolol tartrate 50 mg tablet 50 mg PO BID nitroglycerin 0.4 mg tablet, sublingual 0.4 mg sublingual Q5M PRN Rx Instructions: do not exceed 3 doses per episode cetirizine 10 mg tablet 10 mg PO DAILY ondansetron 4 mg tablet,disintegrating 4 mg PO QID PRN (Reason: Nausea And Vomiting) olmesartan 20 mg tablet 20 mg PO DAILY rosuvastatin 40 mg tablet 40 mg PO DAILY ranolazine 1,000 mg tablet extended release 12 hr 1,000 mg PO BID Discharge Orders: Discharge ED (Routine); Ordered 05/15/24 Ordered By: Dong Brumfield Discharge Diet: Usual diet Discharge Activity: Increase activity as tolerated Patient Instructions: Chest Pain (ED) Activity Restrictions/Additional Instructions: Please 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 Also follow-up with your primary care provider and discuss your ED workup. Continue taking your medications for acid reflux. If your pain worsens at all or you develop any new or concerning symptoms, please return immediately for reevaluation. Coding Level of Care Code ED Hydrogeology Professor for Gael Nino
--- NOTE | 2024-05-14 21:38 | ECG_ITS ---
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 Measurements Intervals [place] Rate: 95 P: 51 FL: 191 QRS: 13 QRSD: 100 T: 68 QT: 331 QTc: 417 Interpretive Statements SINUS RHYTHM NONSPECIFIC T-WAVE ABNORMALITY Compared to ECG 02/04/2018 15:10:14 Sinus tachycardia no longer present T-wave abnormality still present Electronically Signed On 05-14-2024 23:21:12 CDT by Mikey Parnell M.D. [id number]
[2024-05-14 22:10] VITALS: BP 128/74; PULSE 88; RESP 10; O2SAT 93
[2024-05-14 22:30] VITALS: BP 128/74; PULSE 89; RESP 16; O2SAT 92
[2024-05-14] MEDS: lidocaine 2% viscous 15 ML, aluminum-mag hydrox-simethicon 30 ML, sucralfate oral liq 1 GM PO (22:35)
[2024-05-14 22:37] LABS: Basophils # 0.1 10^3/uL (0.0-0.1); Basophils % 0.3 %; Eosinophils % 0.1 %; Hematocrit 49.6 % (37-53); Lymphocytes # 1.7 10^3/uL (0.8-4.8); Lymphocytes % 11.8 %; Mean Corpuscular HGB Conc 32.5 g/dL (30-55); Mean Corpuscular Hemoglobin 28.8 pg (27-33); Mean Corpuscular Volume 88.7 fl (82-101); Mean Platelet Volume 9.8 fL (7.4-10.4); Monocytes # 1.2 10^3/uL (0.2-0.9); Monocytes % 8.1 %; Neutrophils # 11.51 10^3/uL (1.8-7.7); Neutrophils % 78.9 %; Nucleated Red Blood Cells % 0 %; Platelet Count 268 10^3/cmm (157-399); Red Blood Count 5.59 10^6/uL (3.85-5.65); Red Cell Distribution Width 14.4 % (12.1-15.1); White Blood Count 14.59 10^3/uL (3.29-11.43)
[2024-05-14 22:59] LABS: Troponin(5th) Baseline 20 ng/L (0-15)
[2024-05-14 23:00] VITALS: PULSE 85; O2SAT 94
[2024-05-14 23:06] LABS: Alanine Aminotransferase 38 U/L (0-41); Albumin Level 4.1 g/dL (3.5-5.2); Alkaline Phosphatase 72 U/L (40-130); Aspartate Amino Transferase 21 U/L (0-40); Blood Urea Nitrogen 21 mg/dL (6-20); Calcium 9.1 mg/dL (8.5-10.5); Carbon Dioxide 21 mmol/L (22-29); Chloride 102 mmol/L (98-107); Creatinine Clr Calc Pharmacy 103.5656; Globulin 2.8 g/dL (1.3-4.6); Glomerular Filtration Rate 82.8 mL/min (90-130); Glucose 210 mg/dL (65-115); NT Pro B Type Natriuretic Pept < 36 pg/mL (0-125); Osmolality Calculated 295 mOsm/kg (285-295); Sodium 138 mmol/L (136-145); Total Bilirubin 0.3 mg/dL (0.15-1.2); Total Protein 6.9 g/dL (6.6-8.7)
[2024-05-14 23:13] LABS: Anion Gap 18.9 (5-19); Potassium 3.9 mmol/L (3.5-5.1)
[2024-05-14] MEDS: sodium chloride 0.9% 1,000 ML 999 ML IV (23:25)
--- NOTE | 2024-05-14 23:36 | ECG_ITS ---
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 Measurements Intervals [place] Rate: 70 P: 51 CT: 203 QRS: 14 QRSD: 110 T: 68 QT: 356 QTc: 386 Interpretive Statements SINUS RHYTHM WITH SINUS ARRHYTHMIA NONSPECIFIC T-WAVE ABNORMALITY Compared to ECG 05/14/2024 21:38:48 No significant changes Electronically Signed On 05-15-2024 21:35:01 CDT by Ronni Isaacs M.D. [id number]
[2024-05-15] VITALS: BP 145/83; PULSE 79; RESP 18; O2SAT 95
[2024-05-15] MEDS: ketorolac 60 mg/2 mL INJ 30 MG IVP (00:17)
[2024-05-15 01:36] VITALS: BP 129/80; PULSE 86; RESP 20; O2SAT 92
== END 2024-05-15 01:39 | disposition home or self-care (01) ==
PROVIDERS: Emergency Provider Physician Assistant; PCP Internal Medicine
DX: R07.89 Other chest pain (principal); Z79.82 Long term (current) use of aspirin; Z77.22 Contact with and (suspected) exposure to environmental tobacco smoke (acute) (chronic); I25.10 Atherosclerotic heart disease of native coronary artery without angina pectoris; I50.9 Heart failure, unspecified; I25.2 Old myocardial infarction
CPT/HCPCS: 36415; 71045; 80053; 83880; 84484; 85025; 93005; 96374; 99285; J1885; J7030

== ENCOUNTER 2024-05-22 14:39 | Outpatient (RCR) | payer OTHER, SELFPAY | END 2024-05-30 23:59 | disposition home or self-care (01) | LOC: CR 14:39 | PROVIDERS: PCP Internal Medicine; Referring Provider Internal Medicine; Visit Provider Internal Medicine | DX: I25.10 Atherosclerotic heart disease of native coronary artery without angina pectoris (principal) | CPT/HCPCS: 93798 ==

== ENCOUNTER 2024-05-31 09:33 | Outpatient (RCR) | payer OTHER, SELFPAY | END 2024-06-30 18:00 | disposition home or self-care (01) | LOC: CR 09:33 | PROVIDERS: PCP Internal Medicine; Referring Provider Internal Medicine; Visit Provider Internal Medicine | DX: I25.10 Atherosclerotic heart disease of native coronary artery without angina pectoris (principal) | CPT/HCPCS: 93798 ==

== ENCOUNTER 2024-07-01 08:00 | Outpatient (RCR) | payer OTHER, SELFPAY | END 2024-07-30 23:59 | disposition home or self-care (01) | LOC: CR 08:00 | PROVIDERS: PCP Internal Medicine; Referring Provider Internal Medicine; Visit Provider Internal Medicine | DX: I25.10 Atherosclerotic heart disease of native coronary artery without angina pectoris (principal) | CPT/HCPCS: 93798 ==

== ENCOUNTER 2024-07-31 12:09 | Outpatient (RCR) | payer OTHER, SELFPAY | END 2024-08-30 23:59 | disposition home or self-care (01) | LOC: CR 12:09 | PROVIDERS: PCP Internal Medicine; Referring Provider Internal Medicine; Visit Provider Internal Medicine | DX: I25.10 Atherosclerotic heart disease of native coronary artery without angina pectoris (principal) | CPT/HCPCS: 93798 ==

== ENCOUNTER 2024-08-31 11:42 | Outpatient (RCR) | payer OTHER, SELFPAY | END 2024-09-29 23:59 | disposition home or self-care (01) | LOC: CR 11:42 | PROVIDERS: PCP Internal Medicine; Referring Provider Internal Medicine; Visit Provider Internal Medicine | DX: I25.10 Atherosclerotic heart disease of native coronary artery without angina pectoris (principal) | CPT/HCPCS: 93798 ==

== ENCOUNTER → 2024-09-05 15:23 | Outpatient (BNVA) | payer OTHER, SELFPAY | PROVIDERS: PCP Internal Medicine; Visit Provider Emergency Medicine | DX: J02.9 Acute pharyngitis, unspecified (principal) | CPT/HCPCS: 87071; 87880 ==

== ENCOUNTER 2024-10-01 19:43 | Emergency (ER) | payer OTHER, SELFPAY ==
--- NOTE | 2024-10-01 19:47 | ECG_ITS ---
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 Measurements Intervals [place] Rate: 74 P: 48 [place]: 176 QRS: 5 QRSD: 98 T: 7 QT: 369 QTc: 410 Interpretive Statements SINUS RHYTHM PROBABLE INFERIOR MYOCARDIAL INFARCTION , PROBABLY OLD [35 ms Q WAVE IN II/aVF] Compared to ECG 05/15/2024 00:34:37 Myocardial infarct finding now present Sinus arrhythmia no longer present T-wave abnormality no longer present Electronically Signed On 10-02-2024 21:33:56 CONTESTANT COORDINATOR by Mikey Parnell M.D. [id number]
--- NOTE | 2024-10-01 19:48 | XRR_ITS ---
PROCEDURE INFORMATION: Exam: XR Chest Exam date and time: 10/01/2024 7:53 PM Age: 39 years old Clinical indication: Pain; Chest pressure; Additional info: Cp TECHNIQUE: Imaging protocol: Radiologic exam of the chest. Views: 1 view. COMPARISON: CR XR chest 1V portable [id number] 05/14/2024 9:40 PM FINDINGS: Lungs: No consolidation. Pleural spaces: No pleural effusion. No pneumothorax. Heart/Mediastinum: No cardiomegaly. Bones/joints: No acute findings. XR/XR chest 1V portable [id number] IMPRESSION: No acute chest findings.
[2024-10-01 19:58] VITALS: BP 144/98; PULSE 66; RESP 16; TEMP 36.4; O2SAT 94
[2024-10-01 20:18] LABS: Basophils # 0.1 10^3/uL (0.0-0.1); Basophils % 0.6 %; Eosinophils # 0.3 10^3/uL (0.0-0.8); Eosinophils % 3.2 %; Hematocrit 57.7 % (37-53); Lymphocytes # 3.1 10^3/uL (0.8-4.8); Lymphocytes % 34.4 %; Mean Corpuscular HGB Conc 31.5 g/dL (30-55); Mean Corpuscular Hemoglobin 27.7 pg (27-33); Mean Platelet Volume 9.8 fL (7.4-10.4); Monocytes % 10.6 %; Neutrophils # 4.58 10^3/uL (1.8-7.7); Neutrophils % 50.8 %; Nucleated Red Blood Cells % 0 %; Platelet Count 243 10^3/cmm (157-399); Red Blood Count 6.56 10^6/uL (3.85-5.65); Red Cell Distribution Width 14.8 % (12.1-15.1); White Blood Count 9.02 10^3/uL (3.29-11.43)
[2024-10-01 20:33] LABS: INR 0.96 (0.8-1.2)
[2024-10-01 20:37] LABS: Troponin(5th) Baseline 19 ng/L (0-15)
[2024-10-01 20:44] LABS: Alanine Aminotransferase 39 U/L (0-41); Albumin Level 4.8 g/dL (3.5-5.2); Alkaline Phosphatase 67 U/L (40-130); Aspartate Amino Transferase 23 U/L (0-40); Blood Urea Nitrogen 15 mg/dL (6-20); Carbon Dioxide 31 mmol/L (22-29); Chloride 95 mmol/L (98-107); Globulin 3.6 g/dL (1.3-4.6); Glomerular Filtration Rate 60.8 mL/min (90-130); Glucose 91 mg/dL (65-115); Lipase 22 U/L (13-60); Osmolality Calculated 280 mOsm/kg (285-295); Sodium 135 mmol/L (136-145); Total Bilirubin 0.6 mg/dL (0.15-1.2); Total Protein 8.4 g/dL (6.6-8.7)
--- NOTE | 2024-10-01 21:09 | W.ED.CHESTPA ---
HPI - Chest Pain General: Chief Complaint: Chest Pain Stated Complaint: CP Time Seen by Provider: 10/01/24 20:14 Source: patient Mode of arrival: ambulatory Limitations: no limitations History of Present Illness: Patient is a 39-year-old male who presents to the emergency department complaining of chest pain and shortness of breath beginning this morning, as it awoke him from sleep. Reports a history of STEMI that occurred in August 2022, in which she had a cardiac stent subsequently placed. Since then he has had repeat angiograms as well as stress test, all of which have been unremarkable. Does report a history of angina, and his word processing operator currently is located in [place] and he has an appointment with them later this week. Chest pain and shortness of breath has been there constantly throughout the day, reports that the pain is to the left anterior chest and does not radiate. Also is reporting a headache, and a cough today. He is on medications for blood pressure and high cholesterol, also takes furosemide and prasugrel. Denies any known sick contacts. Does not report any specific alleviating or exacerbating factors of this pain. He is not endorsing any orthopnea. States this feels worse than his typical anginal pain, denies any recent heavy lifting or trauma. His vitals are stable at this time, pulse 66 and blood pressure 140/98 on triage. Breathing comfortably on room air. 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 Onset (ago): hour(s) Timing of current episode: constant Prior episodes: Yes Onset: awoke with symptoms Pain location: left chest Pain radiation: none Quality: tightness Relieving factors: nothing Exacerbating factors: nothing Associated symptoms: Reports dyspnea; Deny abdominal pain, fever(s), nausea, palpitations or vomiting Related Data Home Medications Medication Instructions Recorded Confirmed aspirin 81 mg tablet,delayed 81 mg PO DAILY 06/29/23 05/13/24 release (Adult Low Dose Aspirin) isosorbide dinitrate 30 mg tablet 30 mg PO BID 06/29/23 05/13/24 prasugrel 10 mg tablet 10 mg PO DAILY 06/29/23 05/13/24 cetirizine 10 mg tablet 10 mg PO DAILY 01/02/24 05/13/24 olmesartan 20 mg tablet 20 mg PO DAILY 01/02/24 05/13/24 ondansetron 4 mg disintegrating 4 mg PO QID PRN Nausea And Vomiting 01/02/24 05/13/24 tablet ranolazine 1,000 mg 1,000 mg PO BID 01/02/24 05/13/24 tablet,extended release,12 hr rosuvastatin 40 mg tablet 40 mg PO DAILY 01/02/24 05/13/24 nitroglycerin 0.4 mg sublingual 0.4 mg sublingual Q5M PRN 02/19/24 05/13/24 tablet alprazolam 0.5 mg tablet (Xanax) 0.5 mg PO BID PRN 09/05/24 09/05/24 furosemide 40 mg tablet (Lasix) 40 mg PO QAM 09/05/24 09/05/24 testosterone enanthate 200 mg/mL IM 09/05/24 09/05/24 intramuscular syringe Previous Rx's Medication Instructions Recorded pantoprazole 40 mg tablet,delayed 40 mg PO BID 6 weeks #84 tabs 12/08/23 release (Protonix) albuterol sulfate 90 mcg/actuation 2 puff inhalation QID PRN 05/13/24 aerosol inhaler Shortness Of Breath Or Wheezing #8.5 grams cetirizine 10 mg tablet (Zyrtec) 10 mg PO DAILY #30 tabs 05/13/24 fluticasone propionate 50 2 spray intranasal BID nasal 05/13/24 mcg/actuation nasal congestion #16 grams spray,suspension (Flonase Allergy Relief) amoxicillin 500 mg tablet 1,000 mg (2 x 500 mg) PO BID 10 09/05/24 days #40 tabs Allergies Allergy/AdvReac Type Severity Reaction Status Date / Time morphine Allergy rash Verified 10/01/24 20:03 Review of Systems General: Reports: 10 or more systems reviewed and unremarkable except in HPI and below Const: Denies: fever(s), chills or fatigue Eyes: Denies: change in vision ENMT: Denies: throat pain, ear or mastoid pain or nasal discharge Card: Reports: chest pain; Denies: palpitations, swelling of feet/ankles or lightheadedness Resp: Reports: dyspnea and non-productive cough; Denies: wheezing GI: Denies: abdominal pain, nausea, vomiting, diarrhea or constipation : Denies: flank pain, difficulty urinating, dysuria or urinary frequency Musc: Denies: neck pain, back pain or joint pain Skin/Breast: Denies: rash Neuro: Reports: headache(s); Denies: numbness in extremities or weakness in extremities PFSH ED PFSH: Medical History Injury of finger of left hand Erectile dysfunction of organic origin On SILDENAFIL with no contraindications. Benefit noted. Low testosterone in male On TRT 200 mg every 10 to 14 days with good response and safe laboratory level in follow-up. Surgical History Hx of left knee surgery Family History Father Suicide Social History Smoking and tobacco/nicotine status: unknown if used tobacco/nicotine Second hand smoke exposure: Yes Alcohol intake: current Alcohol intake frequency: few times a week Alcohol type: beer and hard liquor Substance/Drug Use: never Adopted: No Caregiver/support person: No Lives independently: Yes Marital status: Current occupational status: employed Do you think of yourself as: Straight/Heterosexual Current gender identity: Male Physical Exam Const: COMMON NORMALS: no acute distress and no limitations GENERAL APPEARANCE: cooperative, comfortable and well developed ORIENTATION/CONSCIOUSNESS: Yes awake HENMT: COMMON NORMALS: normocephalic, atraumatic and hearing grossly normal bilaterally HEAD & SCALP: normocephalic and atraumatic Eye: COMMON NORMALS: Equal, round and reactive pupils present, EOMs intact bilaterally and conjunctivae normal CONJUNCTIVA: Yes conjunctivae normal PUPIL: Yes Equal, round and reactive pupils present Neck/C-Spine: COMMON NORMALS: full ROM, supple and no JVD Chest: OTHER: Reproducible tenderness to palpation of left anterior chest wall Resp: COMMON NORMALS: normal respiratory effort, No retractions, No use of accessory muscles and clear to auscultation bilaterally AUSCULTATION: clear to auscultation bilaterally Cardio: COMMON NORMALS: no JVD, regular rate, regular rhythm, No clicks present (Cardio), No murmurs present (Cardio) and No rub (Cardio) RATE: regular rate RHYTHM: regular rhythm GI: COMMON NORMALS: Normal to inspection, nondistended, normoactive bowel sounds present, Soft to palpation and non-tender AUSCULTATION: Yes normoactive bowel sounds PALPATION: Yes Soft to palpation RECTAL EXAM: Yes deferred Extremity: COMMON NORMALS: normal to inspection, full ROM and capillary refill normal Psych: COMMON NORMALS: mental status grossly normal and Normal thought process present THOUGHT PROCESS: Normal thought process present Skin: COMMON NORMALS: no rashes or lesions noted GENERAL SKIN EXAM: no rashes or lesions noted Course Vital Signs: Vital signs: Vital Signs Temperature 97.6 F 10/01/24 19:58 Pulse Rate 70 10/01/24 22:59 Respiratory Rate 17 10/01/24 22:30 Blood Pressure 125/80 10/01/24 22:59 Pulse Oximetry 93 10/01/24 22:59 Oxygen Delivery Me thod Room Air 10/01/24 22:30 MDM - Chest Pain Medical Decision Making Patient well-known here to the emergency department presenting with chest pain beginning this morning. Also has a history of anxiety for which he takes Ativan. Vitals are stable. His troponin unremarkable, and 2-hour troponin also normal. EKG reviewed with physician showing normal sinus rhythm rate of 67 with no acute STEMI. His BNP was also negative and he did not appear fluid overloaded on physical exam. He was given dose of Ativan here and did feel better after this. His pain could be related to his stable angina, does not appear to be related to any emergent cardiac process at this time and will have him follow-up with his word processing operator, of which she has appointment scheduled later this week. Return precautions given. He did have some reproducible tenderness to palpation of the left anterior chest wall on exam, and this could represent a musculoskeletal strain as well. Lab Data 10/01/24 20:10 10/01/24 20:10 Radiology Impressions Chest X-Ray 10/01/24 19:48 IMPRESSION: No acute chest findings. Laboratory Results WBC 9.02 10^3/uL (3.29-11.43) 10/01/24 20:10 RBC 6.56 10^6/uL (3.85-5.65) H 10/01/24 20:10 Hgb 18.20 g/dL (11.27-16.99) H 10/01/24 20:10 Hct 57.7 % (37-53) H 10/01/24 20:10 MCV 88.0 fl (82-101) 10/01/24 20:10 MCH 27.7 pg (27-33) 10/01/24 20:10 MCHC 31.5 g/dL (30-55) 10/01/24 20:10 RDW 14.8 % (12.1-15.1) 10/01/24 20:10 Plt Count 243 10^3/cmm (157-399) 10/01/24 20:10 MPV 9.8 fL (7.4-10.4) 10/01/24 20:10 Neut % (Auto) 50.8 % 10/01/24 20:10 Lymph % (Auto) 34.4 % 10/01/24 20:10 [place] % (Auto) 10.6 % 10/01/24 20:10 Eos % (Auto) 3.2 % 10/01/24 20:10 Baso % (Auto) 0.6 % 10/01/24 20:10 Neut # (Auto) 4.58 10^3/uL (1.8-7.7) 10/01/24 20:10 Lymph # (Auto) 3.1 10^3/uL (0.8-4.8) 10/01/24 20:10 [place] # (Auto) 1.0 10^3/uL (0.2-0.9) H 10/01/24 20:10 Eos # (Auto) 0.3 10^3/uL (0.0-0.8) 10/01/24 20:10 Baso # (Auto) 0.1 10^3/uL (0.0-0.1) 10/01/24 20:10 Nucleated RBC % (auto) 0 % 10/01/24 20:10 Nucleated RBCs # 0.0 /100WBC 10/01/24 20:10 PT 13.10 SECONDS (12.1-14.9) 10/01/24 20:10 INR 0.96 (0.8-1.2) 10/01/24 20:10 Sodium 135 mmol/L (136-145) L 10/01/24 20:10 Potassium 4.0 mmol/L (3.5-5.1) 10/01/24 20:10 Chloride 95 mmol/L (98-107) L 10/01/24 20:10 Carbon Dioxide 31 mmol/L (22-29) H 10/01/24 20:10 Anion Gap 13.0 (5-19) 10/01/24 20:10 BUN 15 mg/dL (6-20) 10/01/24 20:10 Creatinine 1.3 mg/dL (0.7-1.2) H 10/01/24 20:10 GFR Calculation 60.8 mL/min (90-130) L 10/01/24 20:10 Glucose 91 mg/dL (65-115) 10/01/24 20:10 Calculated Osmolality 280 mOsm/kg (285-295) L 10/01/24 20:10 Calcium 10.0 mg/dL (8.5-10.5) 10/01/24 20:10 Total Bilirubin 0.6 mg/dL (0.15-1.2) 10/01/24 20:10 AST 23 U/L (0-40) 10/01/24 20:10 ALT 39 U/L (0-41) 10/01/24 20:10 Alkaline Phosphatase 67 U/L (40-130) 10/01/24 20:10 Troponin T Baseline 19 ng/L (0-15) H 10/01/24 20:10 Troponin T 120 Minute 16.34 ng/L (0-15) H 10/01/24 22:00 Delta Troponin T -2.66 ABS# (0-10) L 10/01/24 22:00 NT-Pro-B Natriuret Pep < 36 pg/mL (0-125) 10/01/24 20:10 Total Protein 8.4 g/dL (6.6-8.7) 10/01/24 20:10 Albumin 4.8 g/dL (3.5-5.2) 10/01/24 20:10 Globulin 3.6 g/dL (1.3-4.6) 10/01/24 20:10 Lipase 22 U/L (13-60) 10/01/24 20:10 Coronavirus (PCR) Negative (Negative) 10/01/24 21:15 Influenza A (PCR) Negative (Negative) 10/01/24 21:15 Influenza Type B (PCR) Negative (Negative) 10/01/24 21:15 RSV (PCR) Negative (Negative) 10/01/24 21:15 All radiology interpretation(s) finalized by discharge Discharge Plan Discharge Patient Disposition: Home Clinical Impression: Atypical chest pain Condition: Stable Prescriptions: No Action albuterol sulfate 90 mcg/actuation HFA aerosol inhaler 2 puff INHALATION QID PRN (Reason: Shortness Of Breath Or Wheezing) Qty: 8.5 0RF fluticasone propionate [Flonase Allergy Relief] 50 mcg/actuation spray,suspension 2 spray intranasal BID Qty: 16 0RF Rx Instructions: administer into each nostril cetirizine [Zyrtec] 10 mg tablet 10 mg PO DAILY Qty: 30 0RF furosemide [Lasix] 40 mg tablet 40 mg PO QAM alprazolam [Xanax] 0.5 mg tablet 0.5 mg PO BID PRN testosterone enanthate 200 mg/mL syringe IM amoxicillin 500 mg tablet 1,000 mg PO BID 10 Days Qty: 40 0RF aspirin [Adult Low Dose Aspirin] 81 mg tablet,delayed release (DR/EC) 81 mg PO DAILY isosorbide dinitrate 30 mg tablet 30 mg PO BID Rx Instructions: allow nitrate-free interval of 12-14 hrs per 24-hr period prasugrel 10 mg tablet 10 mg PO DAILY pantoprazole [Protonix] 40 mg tablet,delayed release (DR/EC) 40 mg PO BID 42 Days Qty: 84 1RF nitroglycerin 0.4 mg tablet, sublingual 0.4 mg sublingual Q5M PRN Rx Instructions: do not exceed 3 doses per episode cetirizine 10 mg tablet 10 mg PO DAILY ondansetron 4 mg tablet,disintegrating 4 mg PO QID PRN (Reason: Nausea And Vomiting) olmesartan 20 mg tablet 20 mg PO DAILY rosuvastatin 40 mg tablet 40 mg PO DAILY ranolazine 1,000 mg tablet extended release 12 hr 1,000 mg PO BID Discharge Orders: Discharge ED (Routine); Ordered 10/01/24 Ordered By: Dong Brumfield Referrals: Noah Granda MD [Primary Care Provider] - Patient Instructions: Angina (ED), Chest Pain (ED) Activity Restrictions/Additional Instructions: Follow up with your word processing operator this week as planned. Please continue taking home medications. Coding Level of Care Code ED Building Maintenance Mechanic for Gael Nino
[2024-10-01 21:33] VITALS: BP 137/100; PULSE 64; RESP 18; O2SAT 94
--- NOTE | 2024-10-01 21:48 | ECG_ITS ---
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 Measurements Intervals [place] Rate: 67 P: 56 [place]: 187 QRS: 24 QRSD: 95 T: 28 QT: 385 QTc: 409 Interpretive Statements SINUS RHYTHM Compared to ECG 05/15/2024 00:34:37 Sinus arrhythmia no longer present T-wave abnormality no longer present Electronically Signed On 10-02-2024 21:55:01 [employer] by Mikey Parnell M.D. [email or web address]
[2024-10-01 21:49] LABS: NT Pro B Type Natriuretic Pept < 36 pg/mL (0-125)
[2024-10-01 21:58] LABS: Covid PCR NEGATIVE (Negative); Influenza A NEGATIVE (Negative); Influenza B NEGATIVE (Negative); Respiratory Syncytial Virus Ce NEGATIVE (Negative)
[2024-10-01] MEDS: ketorolac 60 mg/2 mL INJ IM (22:05)
[2024-10-01] MEDS: LORazepam 1 mg Tablet PO (22:07)
[2024-10-01 22:09] VITALS: BP 156/106; PULSE 71; RESP 20; O2SAT 97
[2024-10-01 22:29] LABS: Troponin 5 2HR 16.34 ng/L (0-15)
[2024-10-01 22:30] VITALS: BP 125/85; PULSE 67; RESP 17; O2SAT 93
[2024-10-01 22:37] LABS: Troponin 5 2HR Delta -2.66 ABS# (0-10)
[2024-10-01 22:59] VITALS: BP 125/80; PULSE 70; O2SAT 93
== END 2024-10-01 23:00 | disposition home or self-care (01) ==
PROVIDERS: Emergency Medicine; Emergency Provider Physician Assistant; PCP Internal Medicine
DX: R07.89 Other chest pain (principal); Z11.52 Encounter for screening for COVID-19
CPT/HCPCS: 0241U; 36415; 71045; 80053; 83690; 83880; 84484; 85025; 85610; 93005; 96372; 99285; J1885

== ENCOUNTER 2024-10-10 21:16 | Emergency (ER) | payer BC, MEDICAID, SELFPAY ==
[2024-10-10 21:31] VITALS: BP 144/88; PULSE 97; RESP 16; TEMP 36.9; O2SAT 96; BMI 33.5
--- NOTE | 2024-10-10 21:56 | ED_ITS ---
HPI - Extremity Problem General: Chief complaint: Extremity Problem,Nontraumatic Stated complaint: gave blood 1400 still bleeding, swelling wrist num Time Seen by Provider: 10/10/24 21:42 History of Present Illness: Patient is to the ER with complaints of his left arm bleeding the space every day but today about 2 PM. He said he was doing good but then he went to lift a table and began bleeding again. During his ride to the ER he said his left hand got little cold and got little numb but in the ER it started to warm back up and he started getting normal sensation back. Nursing put a Coban dressing on it bleeding is controlled at the time. Patient is on anticoagulation. Related Data Home Medications Medication Instructions Recorded Confirmed aspirin 81 mg tablet,delayed 81 mg PO DAILY 06/29/23 05/13/24 release (Adult Low Dose Aspirin) isosorbide dinitrate 30 mg tablet 30 mg PO BID 06/29/23 05/13/24 prasugrel 10 mg tablet 10 mg PO DAILY 06/29/23 05/13/24 cetirizine 10 mg tablet 10 mg PO DAILY 01/02/24 05/13/24 olmesartan 20 mg tablet 20 mg PO DAILY 01/02/24 05/13/24 ondansetron 4 mg disintegrating 4 mg PO QID PRN Nausea And Vomiting 01/02/24 05/13/24 tablet ranolazine 1,000 mg 1,000 mg PO BID 01/02/24 05/13/24 tablet,extended release,12 hr rosuvastatin 40 mg tablet 40 mg PO DAILY 01/02/24 05/13/24 nitroglycerin 0.4 mg sublingual 0.4 mg sublingual Q5M PRN 02/19/24 05/13/24 tablet alprazolam 0.5 mg tablet (Xanax) 0.5 mg PO BID PRN 09/05/24 09/05/24 furosemide 40 mg tablet (Lasix) 40 mg PO QAM 09/05/24 09/05/24 testosterone enanthate 200 mg/mL IM 09/05/24 09/05/24 intramuscular syringe Previous Rx's Medication Instructions Recorded pantoprazole 40 mg tablet,delayed 40 mg PO BID 6 weeks #84 tabs 12/08/23 release (Protonix) albuterol sulfate 90 mcg/actuation 2 puff inhalation QID PRN 05/13/24 aerosol inhaler Shortness Of Breath Or Wheezing #8.5 grams cetirizine 10 mg tablet (Zyrtec) 10 mg PO DAILY #30 tabs 05/13/24 fluticasone propionate 50 2 spray intranasal BID nasal 05/13/24 mcg/actuation nasal congestion #16 grams spray,suspension (Flonase Allergy Relief) amoxicillin 500 mg tablet 1,000 mg (2 x 500 mg) PO BID 10 09/05/24 days #40 tabs Allergies Allergy/AdvReac Type Severity Reaction Status Date / Time morphine Allergy rash Verified 10/01/24 20:03 Review of Systems General: Reports: 10 or more systems reviewed and unremarkable except in HPI and below PFSH ED PFSH: Medical History Injury of finger of left hand Erectile dysfunction of organic origin On SILDENAFIL with no contraindications. Benefit noted. Low testosterone in male On TRT 200 mg every 10 to 14 days with good response and safe laboratory level in follow-up. Surgical History Hx of left knee surgery Family History Father Suicide Social History Smoking and tobacco/nicotine status: unknown if used tobacco/nicotine Second hand smoke exposure: Yes Alcohol intake: current Alcohol intake frequency: few times a week Alcohol type: beer and hard liquor Substance/Drug Use: never Adopted: No Caregiver/support person: No Lives independently: Yes Marital status: Current occupational status: employed Do you think of yourself as: Straight/Heterosexual Current gender identity: Male Physical Exam Neck/C-Spine: COMMON NORMALS: no JVD Chest: COMMONS NORMALS: normal inspection of the chest and normal palpation of entire chest wall Resp: COMMON NORMALS: normal respiratory effort, No retractions, No use of accessory muscles and clear to auscultation bilaterally AUSCULTATION: clear to auscultation bilaterally Cardio: COMMON NORMALS: no JVD, regular rate, regular rhythm, S1 normal heart sound present, S2 normal heart sound present, No gallops present (Cardio), No clicks present (Cardio), No murmurs present (Cardio) and No rub (Cardio) RATE: regular rate RHYTHM: regular rhythm HEART SOUNDS: S1 normal heart sound present and S2 normal heart sound present GI: COMMON NORMALS: Normal to inspection, nondistended, normoactive bowel sounds present, Soft to palpation, non-tender, No hepatosplenomegaly present and no masses PALPATION: Yes Soft to palpation and Yes No hepatosplenomegaly present Extremity: NARRATIVE EXTREMITY EXAM: Coban dressing on left AC space no bleeding noted. Course Vital Signs: Vital signs: Vital Signs Temperature 98.4 F 10/10/24 21:31 Pulse Rate 97 10/10/24 21:31 Respiratory Rate 16 10/10/24 21:31 Blood Pressure 144/88 10/10/24 21:31 Pulse Oximetry 96 10/10/24 21:31 MDM - Extremity (Nontraumatic) Medical Decision Making Patient is stable nonbleeding will be discharged home. Medical Records I reviewed the patient's medical records. Lab Data I reviewed the patient's lab results. No radiology studies performed this visit Discharge Plan Discharge Patient Disposition: Home Clinical Impression: Visit for wound check, History of blood donation Condition: Stable Prescriptions: No Action albuterol sulfate 90 mcg/actuation HFA aerosol inhaler 2 puff INHALATION QID PRN (Reason: Shortness Of Breath Or Wheezing) Qty: 8.5 0RF fluticasone propionate [Flonase Allergy Relief] 50 mcg/actuation spray,suspension 2 spray intranasal BID Qty: 16 0RF Rx Instructions: administer into each nostril cetirizine [Zyrtec] 10 mg tablet 10 mg PO DAILY Qty: 30 0RF furosemide [Lasix] 40 mg tablet 40 mg PO QAM alprazolam [Xanax] 0.5 mg tablet 0.5 mg PO BID PRN testosterone enanthate 200 mg/mL syringe IM amoxicillin 500 mg tablet 1,000 mg PO BID 10 Days Qty: 40 0RF aspirin [Adult Low Dose Aspirin] 81 mg tablet,delayed release (DR/EC) 81 mg PO DAILY isosorbide dinitrate 30 mg tablet 30 mg PO BID Rx Instructions: allow nitrate-free interval of 12-14 hrs per 24-hr period prasugrel 10 mg tablet 10 mg PO DAILY pantoprazole [Protonix] 40 mg tablet,delayed release (DR/EC) 40 mg PO BID 42 Days Qty: 84 1RF nitroglycerin 0.4 mg tablet, sublingual 0.4 mg sublingual Q5M PRN Rx Instructions: do not exceed 3 doses per episode cetirizine 10 mg tablet 10 mg PO DAILY ondansetron 4 mg tablet,disintegrating 4 mg PO QID PRN (Reason: Nausea And Vomiting) olmesartan 20 mg tablet 20 mg PO DAILY rosuvastatin 40 mg tablet 40 mg PO DAILY ranolazine 1,000 mg tablet extended release 12 hr 1,000 mg PO BID Discharge Orders: Discharge ED (Routine); Ordered 10/10/24 Ordered By: Ramin White Referrals: Noah Granda MD [Primary Care Provider] - 1 week Activity Restrictions/Additional Instructions: The bleeding your left arm is controlled. If it starts bleeding again with direct pressure over the area until it stops. If you are unable to get control feel free to return back to the ER. Coding Level of Care Code ED Middle [employer] Humanities Teacher for Gael Nino
[2024-10-10 22:08] VITALS: BP 134/86; PULSE 92; O2SAT 99
== END 2024-10-10 22:18 | disposition home or self-care (01) ==
PROVIDERS: Emergency Provider Emergency Medicine; PCP Internal Medicine
DX: Z48.00 Encounter for change or removal of nonsurgical wound dressing (principal)
CPT/HCPCS: 99282

== ENCOUNTER → 2024-11-14 13:29 | Outpatient (BNVA) | payer BC, MEDICAID, SELFPAY | PROVIDERS: PCP Internal Medicine; Referring Provider Family Medicine; Visit Provider Nurse Practitioner | DX: M25.562 Pain in left knee (principal); M17.32 Unilateral post-traumatic osteoarthritis, left knee; M21.162 Varus deformity, not elsewhere classified, left knee | CPT/HCPCS: 73560; 73565 ==

== ENCOUNTER 2024-12-05 22:13 | Emergency (ER) | payer BC, MEDICAID, SELFPAY ==
--- NOTE | 2024-12-05 22:17 | ECG_ITS ---
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 Measurements Intervals [place] Rate: 83 P: 63 [place]: 164 QRS: 25 QRSD: 102 T: 39 QT: 341 QTc: 401 Interpretive Statements SINUS RHYTHM WITH SINUS ARRHYTHMIA NONSPECIFIC T-WAVE ABNORMALITY Compared to ECG 10/01/2024 21:56:49 T-wave abnormality now present Electronically Signed On 12-06-2024 21:54:16 SADDLE AND HARNESS MAKER by Mikey Parnell M.D. [email or web address] [id number]
[2024-12-05 22:20] VITALS: BP 133/91; PULSE 87; RESP 22; TEMP 36.6; O2SAT 94; BMI 33.5
--- NOTE | 2024-12-05 23:31 | W.ED.URI ---
HPI - URI/Sore Throat General: Chief Complaint: Upper Respiratory Infection Stated Complaint: SOB CP Time Seen by Provider: 12/05/24 23:25 History of Present Illness: Patient presents to the ER with complaints of shortness of breath. Is been going on since the at least last . Patient saw his PCP and was put on cefdinir and steroids. Patient finished the steroids but is still taking antibiotics. Symptoms worsen as a few days ago cough is persisting causing some chest pain especially when he coughs or takes a big deep breath. Everyone at home has influenza but patient tested negative. Related Data Home Medications ?Medication ?Instructions ?Recorded ?Confirmed aspirin 81 mg tablet,delayed 81 mg PO DAILY 06/29/23 11/28/24 release (Adult Low Dose Aspirin) isosorbide dinitrate 30 mg tablet 30 mg PO BID 06/29/23 11/28/24 prasugrel 10 mg tablet 10 mg PO DAILY 06/29/23 11/28/24 cetirizine 10 mg tablet 10 mg PO DAILY 01/02/24 11/28/24 olmesartan 20 mg tablet 20 mg PO DAILY 01/02/24 11/28/24 ondansetron 4 mg disintegrating 4 mg PO QID PRN Nausea And Vomiting 01/02/24 11/28/24 tablet ranolazine 1,000 mg 1,000 mg PO BID 01/02/24 11/28/24 tablet,extended release,12 hr rosuvastatin 40 mg tablet 40 mg PO DAILY 01/02/24 11/28/24 nitroglycerin 0.4 mg sublingual 0.4 mg sublingual Q5M PRN 02/19/24 11/28/24 tablet alprazolam 0.5 mg tablet (Xanax) 0.5 mg PO BID PRN 09/05/24 11/28/24 furosemide 40 mg tablet (Lasix) 40 mg PO QAM 09/05/24 11/28/24 testosterone enanthate 200 mg/mL IM 09/05/24 11/28/24 intramuscular syringe ezetimibe 10 mg tablet (Zetia) 10 mg PO DAILY 11/14/24 11/28/24 Previous Rx's ?Medication ?Instructions ?Recorded pantoprazole 40 mg tablet,delayed 40 mg PO BID 6 weeks #84 tabs 12/08/23 release (Protonix) albuterol sulfate 90 mcg/actuation 2 puff inhalation QID PRN 05/13/24 aerosol inhaler Shortness Of Breath Or Wheezing #8.5 grams cetirizine 10 mg tablet (Zyrtec) 10 mg PO DAILY #30 tabs 05/13/24 fluticasone propionate 50 2 spray intranasal BID nasal 05/13/24 mcg/actuation nasal congestion #16 grams spray,suspension (Flonase Allergy Relief) Allergies Allergy/AdvReac Type Severity Reaction Status Date / Time morphine Allergy rash Verified 12/05/24 22:26 Review of Systems General: Reports: 10 or more systems reviewed and unremarkable except in HPI and below PFSH ED PFSH: Medical History Injury of finger of left hand Erectile dysfunction of organic origin On SILDENAFIL with no contraindications. Benefit noted. Low testosterone in male On TRT 200 mg every 10 to 14 days with good response and safe laboratory level in follow-up. Surgical History Hx of left knee surgery Family History Father Suicide Social History Smoking and tobacco/nicotine status: never used tobacco/nicotine Second hand smoke exposure: Yes Alcohol intake: current Alcohol intake frequency: few times a week Alcohol type: beer and hard liquor Substance/Drug Use: never Adopted: No Caregiver/support person: No Lives independently: Yes Marital status: Current occupational status: employed Do you think of yourself as: Straight/Heterosexual Current gender identity: Male Physical Exam Const: COMMON NORMALS: no acute distress, average body habitus, patient oriented x3, no limitations, healthy appearing, alert and well nourished HENMT: COMMON NORMALS: normocephalic, atraumatic, hearing grossly normal bilaterally, external ears normal and Normal external nose present HEAD & SCALP: normocephalic and atraumatic NOSE: Normal external nose present EXTERNAL EAR: Yes external ears normal Neck/C-Spine: COMMON NORMALS: full ROM, no lymphadenopathy, supple, no meningeal signs, no JVD and Thyroid normal THYROID: Thyroid normal Chest: COMMONS NORMALS: normal inspection of the chest and normal palpation of entire chest wall Resp: COMMON NORMALS: normal respiratory effort, No retractions, No use of accessory muscles and clear to auscultation bilaterally AUSCULTATION: clear to auscultation bilaterally OTHER: Dry hacking cough Cardio: COMMON NORMALS: no JVD, regular rate, regular rhythm, S1 normal heart sound present, S2 normal heart sound present, No gallops present (Cardio), No clicks present (Cardio), No murmurs present (Cardio) and No rub (Cardio) RATE: regular rate RHYTHM: regular rhythm HEART SOUNDS: S1 normal heart sound present and S2 normal heart sound present Neuro: COMMON NORMALS: patient oriented x3 SENSORIUM/ORIENTATION: Yes alert MENINGEAL SIGNS: Yes no meningeal signs Course Vital Signs: Vital signs: Vital Signs Temperature 97.8 F 12/05/24 22:20 Pulse Rate 64 12/06/24 01:00 Respiratory Rate 22 H 12/05/24 22:20 Blood Pressure 138/94 12/06/24 00:00 Pulse Oximetry 96 12/06/24 01:00 Oxygen Delivery Me thod Room Air 12/06/24 01:00 MDM - URI/Sore Throat Medical Decision Making Nasal swab showed influenza A positive otherwise townsend and RSV negative. Patient be discharged home Medical Records I reviewed the patient's medical records. Lab Data I reviewed the patient's lab results. Laboratory Results Coronavirus (PCR) Negative (Negative) 12/05/24 23:59 Influenza A (PCR) Positive (Negative) 12/05/24 23:59 Influenza Type B (PCR) Negative (Negative) 12/05/24 23:59 RSV (PCR) Negative (Negative) 12/05/24 23:59 No radiology studies performed this visit Discharge Plan Discharge Patient Disposition: Home Clinical Impression: Influenza A Condition: Stable Prescriptions: No Action albuterol sulfate 90 mcg/actuation HFA aerosol inhaler 2 puff INHALATION QID PRN (Reason: Shortness Of Breath Or Wheezing) Qty: 8.5 0RF fluticasone propionate [Flonase Allergy Relief] 50 mcg/actuation spray,suspension 2 spray intranasal BID Qty: 16 0RF Rx Instructions: administer into each nostril cetirizine [Zyrtec] 10 mg tablet 10 mg PO DAILY Qty: 30 0RF furosemide [Lasix] 40 mg tablet 40 mg PO QAM alprazolam [Xanax] 0.5 mg tablet 0.5 mg PO BID PRN testosterone enanthate 200 mg/mL syringe IM aspirin [Adult Low Dose Aspirin] 81 mg tablet,delayed release (DR/EC) 81 mg PO DAILY isosorbide dinitrate 30 mg tablet 30 mg PO BID Rx Instructions: allow nitrate-free interval of 12-14 hrs per 24-hr period prasugrel 10 mg tablet 10 mg PO DAILY pantoprazole [Protonix] 40 mg tablet,delayed release (DR/EC) 40 mg PO BID 42 Days Qty: 84 1RF nitroglycerin 0.4 mg tablet, sublingual 0.4 mg sublingual Q5M PRN Rx Instructions: do not exceed 3 doses per episode ezetimibe [Zetia] 10 mg tablet 10 mg PO DAILY cetirizine 10 mg tablet 10 mg PO DAILY ondansetron 4 mg tablet,disintegrating 4 mg PO QID PRN (Reason: Nausea And Vomiting) olmesartan 20 mg tablet 20 mg PO DAILY rosuvastatin 40 mg tablet 40 mg PO DAILY ranolazine 1,000 mg tablet extended release 12 hr 1,000 mg PO BID Discharge Orders: Discharge ED (Routine); Ordered 12/06/24 Ordered By: Ramin White Patient Instructions: Influenza (ED) Activity Restrictions/Additional Instructions: Thank you for choosing [facility] for your healthcare needs today. Please realize that you were seen in the emergency department and that we are providing you with an emergency medical screening exam and this may not be a complete and all exclusive of all testing and/or medical workup we may need to determine your element or severity of your illness. It is very important that you follow-up as instructed with your primary care provider or specialist for the additional evaluation and to discuss your medical treatment plan. You may return to the emergency department should you have concerns or if your condition changes or worsens in any way. 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
[2024-12-05] MEDS: benzonatate 100 mg Capsule PO (23:47)
[2024-12-05 23:52] VITALS: BP 137/83; PULSE 87; O2SAT 91
[2024-12-06] VITALS: BP 138/94; PULSE 76; O2SAT 94
[2024-12-06 00:30] VITALS: PULSE 82; O2SAT 98
[2024-12-06 00:59] LABS: Covid PCR NEGATIVE (Negative); Influenza A POSITIVE (Negative); Influenza B NEGATIVE (Negative); Respiratory Syncytial Virus Ce NEGATIVE (Negative)
[2024-12-06 01:00] VITALS: PULSE 64; O2SAT 96
[2024-12-06 01:19] VITALS: BP 124/84; PULSE 77; O2SAT 97
== END 2024-12-06 01:21 | disposition home or self-care (01) ==
PROVIDERS: Physician Assistant; Emergency Provider Emergency Medicine
DX: J10.1 Influenza due to other identified influenza virus with other respiratory manifestations (principal); Z11.52 Encounter for screening for COVID-19; Z79.82 Long term (current) use of aspirin
CPT/HCPCS: 87637; 93005; 99284

== ENCOUNTER → 2024-12-10 12:47 | Outpatient (BNVA) | payer BC, MEDICAID, SELFPAY | PROVIDERS: PCP Family Medicine; Visit Provider Nurse Practitioner | DX: M17.32 Unilateral post-traumatic osteoarthritis, left knee (principal); M21.162 Varus deformity, not elsewhere classified, left knee | CPT/HCPCS: 36415; 80053; 81001; 85025 ==

== ENCOUNTER 2024-12-20 14:45 | Emergency (ER) | payer BC, MEDICAID, SELFPAY ==
--- NOTE | 2024-12-20 14:46 | XRR_ITS ---
PROCEDURE INFORMATION: Exam: XR Chest Exam date and time: 12/20/2024 3:57 PM Age: 39 years old Clinical indication: Angina; Additional info: Cp TECHNIQUE: Imaging protocol: Radiologic exam of the chest. Views: 1 view. COMPARISON: CR XR chest 1V portable [id number] 10/01/2024 7:53 PM FINDINGS: Lungs: Lungs are clear bilaterally. Pleural spaces: No pleural effusion. No pneumothorax. Heart/Mediastinum: The cardiac silhouette and mediastinal contours are unremarkable. Bones/joints: Unremarkable for age. XR/XR chest 1V portable [id number] IMPRESSION: No acute cardiopulmonary process.
--- NOTE | 2024-12-20 14:46 | ECG_ITS ---
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 Measurements Intervals [place] Rate: 101 P: 29 [place]: 148 QRS: -5 QRSD: 80 T: 46 QT: 330 QTc: 429 Interpretive Statements SINUS TACHYCARDIA INFERIOR MYOCARDIAL INFARCTION , PROBABLY OLD [40+ ms Q WAVE AND/OR ST/T ABNORMALITY IN II/aVF] Compared to ECG 12/05/2024 22:17:10 Myocardial infarct finding now present Sinus rhythm no longer present Sinus arrhythmia no longer present T-wave abnormality no longer present Electronically Signed On 12-20-2024 17:49:48 PRINT BUYER by Mikey Parnell M.D. [email or web address]
[2024-12-20 15:01] VITALS: BP 117/78; PULSE 78; RESP 16; TEMP 36.7; O2SAT 95; BMI 33.5
[2024-12-20 15:49] LABS: Basophils # 0.1 10^3/uL (0.0-0.1); Basophils % 0.8 %; Eosinophils # 0.2 10^3/uL (0.0-0.8); Eosinophils % 3.5 %; Hematocrit 54.2 % (37-53); Lymphocytes # 2.4 10^3/uL (0.8-4.8); Lymphocytes % 36.8 %; Mean Corpuscular HGB Conc 32.1 g/dL (30-55); Mean Corpuscular Hemoglobin 27.5 pg (27-33); Mean Corpuscular Volume 85.8 fl (82-101); Mean Platelet Volume 9.9 fL (7.4-10.4); Monocytes # 0.6 10^3/uL (0.2-0.9); Monocytes % 9.5 %; Neutrophils # 3.22 10^3/uL (1.8-7.7); Neutrophils % 49.1 %; Nucleated Red Blood Cells % 0 %; Platelet Count 227 10^3/cmm (157-399); Red Blood Count 6.32 10^6/uL (3.85-5.65); Red Cell Distribution Width 16.6 % (12.1-15.1); White Blood Count 6.55 10^3/uL (3.29-11.43)
[2024-12-20 16:04] LABS: Troponin(5th) Baseline 27 ng/L (0-15)
[2024-12-20 16:09] LABS: Alanine Aminotransferase 43 U/L (0-41); Albumin Level 4.8 g/dL (3.5-5.2); Alkaline Phosphatase 73 U/L (40-130); Anion Gap 16.3 (5-19); Aspartate Amino Transferase 27 U/L (0-40); Blood Urea Nitrogen 12 mg/dL (6-20); Calcium 10.1 mg/dL (8.5-10.5); Carbon Dioxide 30 mmol/L (22-29); Chloride 98 mmol/L (98-107); Creatinine Clr Calc Pharmacy 80.4045; Glomerular Filtration Rate 60.8 mL/min (90-130); Glucose 91 mg/dL (65-115); Lipase 28 U/L (13-60); Osmolality Calculated 289 mOsm/kg (285-295); Potassium 4.3 mmol/L (3.5-5.1); Sodium 140 mmol/L (136-145); Total Bilirubin 0.8 mg/dL (0.15-1.2); Total Protein 7.8 g/dL (6.6-8.7)
--- NOTE | 2024-12-20 17:02 | ECG_ITS ---
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
--- NOTE | 2024-12-20 17:08 | W.ED.CHESTPA ---
Documented by User: Gregoria Hedrick MD 12/20/24 17:11 HPI - Chest Pain General: Chief Complaint: Chest Pain Stated Complaint: cp Time Seen by Provider: 12/20/24 16:56 Source: patient Mode of arrival: ambulatory Limitations: no limitations History of Present Illness: 39-year-old male who states he has been having chest pain throughout the day. He states been a sharp pain center of his chest he is had history of stents in the past. He states the pain is lessened this evening is currently 2 out of 10 denies any cough or fever denies any severe dyspnea. Associated symptoms: Deny abdominal pain, dyspnea, fever(s), nausea or vomiting Related Data Home Medications ?Medication ?Instructions ?Recorded ?Confirmed aspirin 81 mg tablet,delayed 81 mg PO DAILY 06/29/23 12/10/24 release (Adult Low Dose Aspirin) isosorbide dinitrate 30 mg tablet 30 mg PO BID 06/29/23 12/10/24 prasugrel 10 mg tablet 10 mg PO DAILY 06/29/23 12/10/24 cetirizine 10 mg tablet 10 mg PO DAILY 01/02/24 12/10/24 olmesartan 20 mg tablet 20 mg PO DAILY 01/02/24 12/10/24 ondansetron 4 mg disintegrating 4 mg PO QID PRN Nausea And Vomiting 01/02/24 12/10/24 tablet ranolazine 1,000 mg 1,000 mg PO BID 01/02/24 12/10/24 tablet,extended release,12 hr rosuvastatin 40 mg tablet 40 mg PO DAILY 01/02/24 12/10/24 nitroglycerin 0.4 mg sublingual 0.4 mg sublingual Q5M PRN 02/19/24 12/10/24 tablet alprazolam 0.5 mg tablet (Xanax) 0.5 mg PO BID PRN 09/05/24 12/10/24 furosemide 40 mg tablet (Lasix) 40 mg PO QAM 09/05/24 12/10/24 testosterone enanthate 200 mg/mL IM 09/05/24 12/10/24 intramuscular syringe ezetimibe 10 mg tablet (Zetia) 10 mg PO DAILY 11/14/24 12/10/24 Previous Rx's ?Medication ?Instructions ?Recorded pantoprazole 40 mg tablet,delayed 40 mg PO BID 6 weeks #84 tabs 12/08/23 release (Protonix) albuterol sulfate 90 mcg/actuation 2 puff inhalation QID PRN 05/13/24 aerosol inhaler Shortness Of Breath Or Wheezing #8.5 grams cetirizine 10 mg tablet (Zyrtec) 10 mg PO DAILY #30 tabs 05/13/24 fluticasone propionate 50 2 spray intranasal BID nasal 05/13/24 mcg/actuation nasal congestion #16 grams spray,suspension (Flonase Allergy Relief) Allergies Allergy/AdvReac Type Severity Reaction Status Date / Time morphine Allergy rash Verified 12/20/24 15:05 Review of Systems Const: Denies: fever(s), chills, body aches or change in appetite ENMT: Denies: throat pain or dental pain Card: Reports: chest pain Resp: Denies: dyspnea GI: Denies: abdominal pain, nausea, vomiting or diarrhea : Denies: dysuria Musc: Denies: neck pain or back pain Skin/Breast: Denies: rash Neuro: Denies: headache(s) PFSH ED PFSH: Medical History Injury of finger of left hand Erectile dysfunction of organic origin On SILDENAFIL with no contraindications. Benefit noted. Low testosterone in male On TRT 200 mg every 10 to 14 days with good response and safe laboratory level in follow-up. Surgical History Hx of left knee surgery PCL repair Family History Father Suicide Social History Smoking and tobacco/nicotine status: never used tobacco/nicotine Second hand smoke exposure: Yes Alcohol intake: current Alcohol intake frequency: few times a week Alcohol type: beer and hard liquor Substance/Drug Use: never Adopted: No Caregiver/support person: No Lives independently: Yes Marital status: Current occupational status: employed Do you think of yourself as: Straight/Heterosexual Current gender identity: Male Physical Exam Const: COMMON NORMALS: no acute distress, patient oriented x3 and healthy appearing HENMT: COMMON NORMALS: normocephalic and atraumatic HEAD & SCALP: normocephalic and atraumatic Eye: COMMON NORMALS: conjunctivae normal CONJUNCTIVA: Yes conjunctivae normal Neck/C-Spine: COMMON NORMALS: full ROM and supple Chest: COMMONS NORMALS: normal inspection of the chest Resp: COMMON NORMALS: normal respiratory effort, No retractions, No use of accessory muscles and clear to auscultation bilaterally AUSCULTATION: clear to auscultation bilaterally Cardio: COMMON NORMALS: regular rate, regular rhythm and No murmurs present (Cardio) RATE: regular rate RHYTHM: regular rhythm Extremity: COMMON NORMALS: normal to inspection and full ROM Neuro: COMMON NORMALS: patient oriented x3, moves all extremities and no focal motor deficits Psych: COMMON NORMALS: mental status grossly normal, Normal thought process present and cooperative THOUGHT PROCESS: Normal thought process present Skin: COMMON NORMALS: no rashes or lesions noted and no wounds GENERAL SKIN EXAM: no rashes or lesions noted Course Vital Signs: Vital signs: Vital Signs Temperature 98.1 F 12/20/24 15:01 Pulse Rate 79 12/20/24 17:16 Respiratory Rate 18 12/20/24 17:16 Blood Pressure 124/91 12/20/24 17:16 Pulse Oximetry 93 12/20/24 17:16 Oxygen Delivery Me thod Room Air 12/20/24 17:16 MDM - Chest Pain Medical Records I reviewed the patient's medical records. Lab Data I reviewed the patient's lab results. 12/20/24 15:36 12/20/24 15:36 Radiology Impressions Chest X-Ray 12/20/24 14:46 IMPRESSION: No acute cardiopulmonary process. Laboratory Results WBC 6.55 10^3/uL (3.29-11.43) 12/20/24 15:36 RBC 6.32 10^6/uL (3.85-5.65) H 12/20/24 15:36 Hgb 17.40 g/dL (11.27-16.99) H 12/20/24 15:36 Hct 54.2 % (37-53) H 12/20/24 15:36 MCV 85.8 fl (82-101) 12/20/24 15:36 MCH 27.5 pg (27-33) 12/20/24 15:36 MCHC 32.1 g/dL (30-55) 12/20/24 15:36 RDW 16.6 % (12.1-15.1) H 12/20/24 15:36 Plt Count 227 10^3/cmm (157-399) 12/20/24 15:36 MPV 9.9 fL (7.4-10.4) 12/20/24 15:36 Neut % (Auto) 49.1 % 12/20/24 15:36 Lymph % (Auto) 36.8 % 12/20/24 15:36 Norman % (Auto) 9.5 % 12/20/24 15:36 Eos % (Auto) 3.5 % 12/20/24 15:36 Baso % (Auto) 0.8 % 12/20/24 15:36 Neut # (Auto) 3.22 10^3/uL (1.8-7.7) 12/20/24 15:36 Lymph # (Auto) 2.4 10^3/uL (0.8-4.8) 12/20/24 15:36 Norman # (Auto) 0.6 10^3/uL (0.2-0.9) 12/20/24 15:36 Eos # (Auto) 0.2 10^3/uL (0.0-0.8) 12/20/24 15:36 Baso # (Auto) 0.1 10^3/uL (0.0-0.1) 12/20/24 15:36 Nucleated RBC % (auto) 0 % 12/20/24 15:36 Nucleated RBCs # 0.0 /100WBC 12/20/24 15:36 Sodium 140 mmol/L (136-145) 12/20/24 15:36 Potassium 4.3 mmol/L (3.5-5.1) 12/20/24 15:36 Chloride 98 mmol/L (98-107) 12/20/24 15:36 Carbon Dioxide 30 mmol/L (22-29) H 12/20/24 15:36 Anion Gap 16.3 (5-19) 12/20/24 15:36 BUN 12 mg/dL (6-20) 12/20/24 15:36 Creatinine 1.3 mg/dL (0.7-1.2) H 12/20/24 15:36 GFR Calculation 60.8 mL/min (90-130) L 12/20/24 15:36 Glucose 91 mg/dL (65-115) 12/20/24 15:36 Calculated Osmolality 289 mOsm/kg (285-295) 12/20/24 15:36 Calcium 10.1 mg/dL (8.5-10.5) 12/20/24 15:36 Total Bilirubin 0.8 mg/dL (0.15-1.2) 12/20/24 15:36 AST 27 U/L (0-40) 12/20/24 15:36 ALT 43 U/L (0-41) H 12/20/24 15:36 Alkaline Phosphatase 73 U/L (40-130) 12/20/24 15:36 Troponin T Baseline 27 ng/L (0-15) H 12/20/24 15:36 Troponin T 120 Minute 26.62 ng/L (0-15) H 12/20/24 18:10 Delta Troponin T -0.38 ABS# (0-10) L 12/20/24 18:10 Total Protein 7.8 g/dL (6.6-8.7) 12/20/24 15:36 Albumin 4.8 g/dL (3.5-5.2) 12/20/24 15:36 Globulin 3.0 g/dL (1.3-4.6) 12/20/24 15:36 Lipase 28 U/L (13-60) 12/20/24 15:36 All radiology interpretation(s) finalized by discharge EKG Data EKG 2: I personally reviewed and interpreted this EKG as follows: EKG interpretation date: 12/20/24 EKG interpretation time: 17:02 Interpretation: nsr hr [address] elevation qrs 91 qtc 375 Discharge Plan Discharge Patient Disposition: Home Clinical Impression: Chest pain Qualifiers: Chest pain type: unspecified Qualified Code(s): R07.9 - Chest pain, unspecified Condition: Stable Prescriptions: No Action albuterol sulfate 90 mcg/actuation HFA aerosol inhaler 2 puff INHALATION QID PRN (Reason: Shortness Of Breath Or Wheezing) Qty: 8.5 0RF fluticasone propionate [Flonase Allergy Relief] 50 mcg/actuation spray,suspension 2 spray intranasal BID Qty: 16 0RF Rx Instructions: administer into each nostril cetirizine [Zyrtec] 10 mg tablet 10 mg PO DAILY Qty: 30 0RF furosemide [Lasix] 40 mg tablet 40 mg PO QAM alprazolam [Xanax] 0.5 mg tablet 0.5 mg PO BID PRN testosterone enanthate 200 mg/mL syringe IM aspirin [Adult Low Dose Aspirin] 81 mg tablet,delayed release (DR/EC) 81 mg PO DAILY isosorbide dinitrate 30 mg tablet 30 mg PO BID Rx Instructions: allow nitrate-free interval of 12-14 hrs per 24-hr period prasugrel 10 mg tablet 10 mg PO DAILY pantoprazole [Protonix] 40 mg tablet,delayed release (DR/EC) 40 mg PO BID 42 Days Qty: 84 1RF nitroglycerin 0.4 mg tablet, sublingual 0.4 mg sublingual Q5M PRN Rx Instructions: do not exceed 3 doses per episode ezetimibe [Zetia] 10 mg tablet 10 mg PO DAILY cetirizine 10 mg tablet 10 mg PO DAILY ondansetron 4 mg tablet,disintegrating 4 mg PO QID PRN (Reason: Nausea And Vomiting) olmesartan 20 mg tablet 20 mg PO DAILY rosuvastatin 40 mg tablet 40 mg PO DAILY ranolazine 1,000 mg tablet extended release 12 hr 1,000 mg PO BID Discharge Orders: Discharge ED (Routine); Ordered 12/20/24 Ordered By: Ramin White Referrals: Dinh Farfan MD [Primary Care Provider] - 1 week Patient Instructions: Chest Pain (ED) Activity Restrictions/Additional Instructions: Activity restrictions/additional instructions: Thank you for choosing [facility] for your healthcare needs today. Please realize that you were seen in the emergency department and that we are providing you with an emergency medical screening exam and this may not be a complete and all exclusive of all testing and/or medical workup we may need to determine your element or severity of your illness. It is very important that you follow-up as instructed with your primary care provider or specialist for the additional evaluation and to discuss your medical treatment plan. You may return to the emergency department should you have concerns or if your condition changes or worsens in any way. 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 [employer] Documented by User: Ramin White DO 12/20/24 19:14 HPI - Chest Pain General: Chief Complaint: Chest Pain Stated Complaint: cp Time Seen by Provider: 12/20/24 16:56 Related Data Home Medications ?Medication ?Instructions ?Recorded ?Confirmed aspirin 81 mg tablet,delayed 81 mg PO DAILY 06/29/23 12/10/24 release (Adult Low Dose Aspirin) isosorbide dinitrate 30 mg tablet 30 mg PO BID 06/29/23 12/10/24 prasugrel 10 mg tablet 10 mg PO DAILY 06/29/23 12/10/24 cetirizine 10 mg tablet 10 mg PO DAILY 01/02/24 12/10/24 olmesartan 20 mg tablet 20 mg PO DAILY 01/02/24 12/10/24 ondansetron 4 mg disintegrating 4 mg PO QID PRN Nausea And Vomiting 01/02/24 12/10/24 tablet ranolazine 1,000 mg 1,000 mg PO BID 01/02/24 12/10/24 tablet,extended release,12 hr rosuvastatin 40 mg tablet 40 mg PO DAILY 01/02/24 12/10/24 nitroglycerin 0.4 mg sublingual 0.4 mg sublingual Q5M PRN 02/19/24 12/10/24 tablet alprazolam 0.5 mg tablet (Xanax) 0.5 mg PO BID PRN 09/05/24 12/10/24 furosemide 40 mg tablet (Lasix) 40 mg PO QAM 09/05/24 12/10/24 testosterone enanthate 200 mg/mL IM 09/05/24 12/10/24 intramuscular syringe ezetimibe 10 mg tablet (Zetia) 10 mg PO DAILY 11/14/24 12/10/24 Previous Rx's ?Medication ?Instructions ?Recorded pantoprazole 40 mg tablet,delayed 40 mg PO BID 6 weeks #84 tabs 12/08/23 release (Protonix) albuterol sulfate 90 mcg/actuation 2 puff inhalation QID PRN 05/13/24 aerosol inhaler Shortness Of Breath Or Wheezing #8.5 grams cetirizine 10 mg tablet (Zyrtec) 10 mg PO DAILY #30 tabs 05/13/24 fluticasone propionate 50 2 spray intranasal BID nasal 05/13/24 mcg/actuation nasal congestion #16 grams spray,suspension (Flonase Allergy Relief) Allergies Allergy/AdvReac Type Severity Reaction Status Date / Time morphine Allergy rash Verified 12/20/24 15:05 PFSH ED PFSH: Medical History Injury of finger of left hand Erectile dysfunction of organic origin On SILDENAFIL with no contraindications. Benefit noted. Low testosterone in male On TRT 200 mg every 10 to 14 days with good response and safe laboratory level in follow-up. Surgical History Hx of left knee surgery PCL repair Family History Father Suicide Social History Smoking and tobacco/nicotine status: never used tobacco/nicotine Second hand smoke exposure: Yes Alcohol intake: current Alcohol intake frequency: few times a week Alcohol type: beer and hard liquor Substance/Drug Use: never Adopted: No Caregiver/support person: No Lives independently: Yes Marital status: Current occupational status: employed Do you think of yourself as: Straight/Heterosexual Current gender identity: Male Course Vital Signs: Vital signs: Vital Signs Temperature 98.1 F 12/20/24 15:01 Pulse Rate 79 12/20/24 17:16 Respiratory Rate 18 12/20/24 17:16 Blood Pressure 124/91 12/20/24 17:16 Pulse Oximetry 93 12/20/24 17:16 Oxygen Delivery Me thod Room Air 12/20/24 17:16 MDM - Chest Pain Medical Decision Making Patient care transitioned over myself at shift change, waiting for 2-hour troponin. 2-hour troponin came back at 26, initial troponin was 27, for delta less than 1. Patient has been chest pain-free his entire time here. Patient be discharged home. Lab Data 12/20/24 15:36 12/20/24 15:36 Radiology Impressions Chest X-Ray 12/20/24 14:46 IMPRESSION: No acute cardiopulmonary process. Laboratory Results WBC 6.55 10^3/uL (3.29-11.43) 12/20/24 15:36 RBC 6.32 10^6/uL (3.85-5.65) H 12/20/24 15:36 Hgb 17.40 g/dL (11.27-16.99) H 12/20/24 15:36 Hct 54.2 % (37-53) H 12/20/24 15:36 MCV 85.8 fl (82-101) 12/20/24 15:36 MCH 27.5 pg (27-33) 12/20/24 15:36 MCHC 32.1 g/dL (30-55) 12/20/24 15:36 RDW 16.6 % (12.1-15.1) H 12/20/24 15:36 Plt Count 227 10^3/cmm (157-399) 12/20/24 15:36 MPV 9.9 fL (7.4-10.4) 12/20/24 15:36 Neut % (Auto) 49.1 % 12/20/24 15:36 Lymph % (Auto) 36.8 % 12/20/24 15:36 Norman % (Auto) 9.5 % 12/20/24 15:36 Eos % (Auto) 3.5 % 12/20/24 15:36 Baso % (Auto) 0.8 % 12/20/24 15:36 Neut # (Auto) 3.22 10^3/uL (1.8-7.7) 12/20/24 15:36 Lymph # (Auto) 2.4 10^3/uL (0.8-4.8) 12/20/24 15:36 Norman # (Auto) 0.6 10^3/uL (0.2-0.9) 12/20/24 15:36 Eos # (Auto) 0.2 10^3/uL (0.0-0.8) 12/20/24 15:36 Baso # (Auto) 0.1 10^3/uL (0.0-0.1) 12/20/24 15:36 Nucleated RBC % (auto) 0 % 12/20/24 15:36 Nucleated RBCs # 0.0 /100WBC 12/20/24 15:36 Sodium 140 mmol/L (136-145) 12/20/24 15:36 Potassium 4.3 mmol/L (3.5-5.1) 12/20/24 15:36 Chloride 98 mmol/L (98-107) 12/20/24 15:36 Carbon Dioxide 30 mmol/L (22-29) H 12/20/24 15:36 Anion Gap 16.3 (5-19) 12/20/24 15:36 BUN 12 mg/dL (6-20) 12/20/24 15:36 Creatinine 1.3 mg/dL (0.7-1.2) H 12/20/24 15:36 GFR Calculation 60.8 mL/min (90-130) L 12/20/24 15:36 Glucose 91 mg/dL (65-115) 12/20/24 15:36 Calculated Osmolality 289 mOsm/kg (285-295) 12/20/24 15:36 Calcium 10.1 mg/dL (8.5-10.5) 12/20/24 15:36 Total Bilirubin 0.8 mg/dL (0.15-1.2) 12/20/24 15:36 AST 27 U/L (0-40) 12/20/24 15:36 ALT 43 U/L (0-41) H 12/20/24 15:36 Alkaline Phosphatase 73 U/L (40-130) 12/20/24 15:36 Troponin T Baseline 27 ng/L (0-15) H 12/20/24 15:36 Troponin T 120 Minute 26.62 ng/L (0-15) H 12/20/24 18:10 Delta Troponin T -0.38 ABS# (0-10) L 12/20/24 18:10 Total Protein 7.8 g/dL (6.6-8.7) 12/20/24 15:36 Albumin 4.8 g/dL (3.5-5.2) 12/20/24 15:36 Globulin 3.0 g/dL (1.3-4.6) 12/20/24 15:36 Lipase 28 U/L (13-60) 12/20/24 15:36 Discharge Plan Discharge Patient Disposition: Home Clinical Impression: Chest pain Qualifiers: Chest pain type: unspecified Qualified Code(s): R07.9 - Chest pain, unspecified Condition: Stable Prescriptions: No Action albuterol sulfate 90 mcg/actuation HFA aerosol inhaler 2 puff INHALATION QID PRN (Reason: Shortness Of Breath Or Wheezing) Qty: 8.5 0RF fluticasone propionate [Flonase Allergy Relief] 50 mcg/actuation spray,suspension 2 spray intranasal BID Qty: 16 0RF Rx Instructions: administer into each nostril cetirizine [Zyrtec] 10 mg tablet 10 mg PO DAILY Qty: 30 0RF furosemide [Lasix] 40 mg tablet 40 mg PO QAM alprazolam [Xanax] 0.5 mg tablet 0.5 mg PO BID PRN testosterone enanthate 200 mg/mL syringe IM aspirin [Adult Low Dose Aspirin] 81 mg tablet,delayed release (DR/EC) 81 mg PO DAILY isosorbide dinitrate 30 mg tablet 30 mg PO BID Rx Instructions: allow nitrate-free interval of 12-14 hrs per 24-hr period prasugrel 10 mg tablet 10 mg PO DAILY pantoprazole [Protonix] 40 mg tablet,delayed release (DR/EC) 40 mg PO BID 42 Days Qty: 84 1RF nitroglycerin 0.4 mg tablet, sublingual 0.4 mg sublingual Q5M PRN Rx Instructions: do not exceed 3 doses per episode ezetimibe [Zetia] 10 mg tablet 10 mg PO DAILY cetirizine 10 mg tablet 10 mg PO DAILY ondansetron 4 mg tablet,disintegrating 4 mg PO QID PRN (Reason: Nausea And Vomiting) olmesartan 20 mg tablet 20 mg PO DAILY rosuvastatin 40 mg tablet 40 mg PO DAILY ranolazine 1,000 mg tablet extended release 12 hr 1,000 mg PO BID Discharge Orders: Discharge ED (Routine); Ordered 12/20/24 Ordered By: Ramin White Referrals: Dinh Farfan MD [Primary Care Provider] - 1 week Patient Instructions: Chest Pain (ED) Activity Restrictions/Additional Instructions: Activity restrictions/additional instructions: Thank you for choosing [facility] for your healthcare needs today. Please realize that you were seen in the emergency department and that we are providing you with an emergency medical screening exam and this may not be a complete and all exclusive of all testing and/or medical workup we may need to determine your element or severity of your illness. It is very important that you follow-up as instructed with your primary care provider or specialist for the additional evaluation and to discuss your medical treatment plan. You may return to the emergency department should you have concerns or if your condition changes or worsens in any way. 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
[2024-12-20] MEDS: aspirin 81 mg Chew Tablet 324 MG PO (17:14)
[2024-12-20 17:16] VITALS: BP 124/91; PULSE 79; RESP 18; O2SAT 93
[2024-12-20 17:30] VITALS: BP 124/86; PULSE 88; O2SAT 91
[2024-12-20 18:00] VITALS: PULSE 98; O2SAT 90
[2024-12-20 18:30] VITALS: BP 128/80; PULSE 76; O2SAT 92
[2024-12-20 18:59] LABS: Troponin 5 2HR 26.62 ng/L (0-15)
[2024-12-20 19:00] LABS: Troponin 5 2HR Delta -0.38 ABS# (0-10)
[2024-12-20 19:41] VITALS: BP 128/80; PULSE 76; O2SAT 94
== END 2024-12-20 19:42 | disposition home or self-care (01) ==
PROVIDERS: Emergency Provider Emergency Medicine; PCP Family Medicine
DX: R07.9 Chest pain, unspecified (principal); Z79.82 Long term (current) use of aspirin
CPT/HCPCS: 36415; 71045; 80053; 83690; 84484; 85025; 93005; 99285

== ENCOUNTER 2025-01-29 01:14 | Observation (INO) | payer BC, MEDICAID, SELFPAY ==
[2025-01-29] VITALS (19 sets, daily range): BP systolic 107–149; BP diastolic 66–96; PULSE 56–100; RESP 11–22; TEMP 36.4–37.1; O2SAT 90–99; BMI 32.3
--- NOTE | 2025-01-29 01:18 | ECG_ITS ---
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 Measurements Intervals [place] Rate: 90 P: 47 GA: 182 QRS: 12 QRSD: 105 T: 62 QT: 345 QTc: 424 Interpretive Statements SINUS RHYTHM Compared to ECG 12/20/2024 17:02:43 Sinus arrhythmia no longer present Electronically Signed On 02-02-2025 18:32:48 CDT by Mikey Parnell M.D. [email or web address]
--- NOTE | 2025-01-29 01:18 | XRR_ITS ---
PROCEDURE INFORMATION: Exam: XR Chest Exam date and time: 01/29/2025 1:28 AM Age: 39 years old Clinical indication: Chest pressure and chest wall pain; Additional info: Chest pain TECHNIQUE: Imaging protocol: Radiologic exam of the chest. Views: 1 view. COMPARISON: CR XR chest 1V portable [id number] 12/20/2024 3:57 PM FINDINGS: Lungs: Unremarkable. No consolidation. Pleural spaces: Unremarkable. No pleural effusion. No pneumothorax. Heart/Mediastinum: Unremarkable. No cardiomegaly. Bones/joints: Unremarkable. XR/XR chest 1V portable [id number] IMPRESSION: No acute findings.
--- NOTE | 2025-01-29 01:23 | ED_ITS ---
HPI - Chest Pain 2 General: Chief Complaint: Chest Pain Stated Complaint: Chest Pains Time Seen by Provider: 01/29/25 01:18 History of Present Illness: 39-year-old man with a history of townsend ry artery disease status post stent almost 2 years ago in [place] who follows with cardiology in [place] who presents the emergency room with chest pain. Left upper chest pain radiating to his neck and arm. Pressure. Has been off and on all day. He took a nitro which helped slightly. He also took 324 mg aspirin. No cough. No lower extremity swelling. No abdominal pain. No vomiting. Related Data Home Medications ?Medication ?Instructions ?Recorded ?Confirmed aspirin 81 mg tablet,delayed 81 mg PO DAILY 06/29/23 0 12/10/24 release (Adult Low Dose Aspirin) isosorbide dinitrate 30 mg tablet 30 mg PO BID 3 12/10/24 prasugrel HCl 10 mg tablet 10 mg PO DAILY 06/29/2308/24 cetirizine 10 mg tablet 10 mg PO DAILY 01/02/2412/01 olmesartan 20 mg tablet 20 mg PO DAILY 01/02/2412/01 ondansetron 4 mg disintegrating 4 mg PO QID PRN Nausea And Vomiting 01/02/24 12/10/24 tablet ranolazine 1,000 mg 1,000 mg PO BID 01/02/2408/24 tablet,extended release,12 hr rosuvastatin 40 mg tablet 40 mg PO DAILY 01/02/2412/01 nitroglycerin 0.4 mg sublingual 0.4 mg sublingual Q5M PRN 02/19/24 12/10/24 tablet alprazolam 0.5 mg tablet (Xanax) 0.5 mg PO BID PRN 04/2312/10/24 furosemide 40 mg tablet (Lasix) 40 mg PO QAM 09/05/24 12/10/24 testosterone enanthate 200 mg/mL IM 09/05/24 12/10/24 intramuscular syringe ezetimibe 10 mg tablet (Zetia) 10 mg PO DAILY 11/14/24 12/10/24 Previous Rx's ?Medication ?Instructions ?Recorded pantoprazole 40 mg tablet,delayed 40 mg PO BID 6 weeks #84 tabs 12/08/23 release (Protonix) albuterol sulfate 90 mcg/actuation 2 puff inhalation Q ID PRN 05/13/24 aerosol inhaler Shortness Of Breath Or Wheez ing #8.5 grams cetirizine 10 mg tablet (Zyrtec) 10 mg PO DAILY #30 ta bs 05/13/24 fluticasone propionate 50 2 spray intranasal BID nasal 05/13/24 mcg/actuation nasal congestion #16 grams spray,suspension (Flonase Allergy Relief) Allergies Allergy/AdvReac Type Severity Reaction Status Date / Time morphine Allergy rash Verified 01/29/25 01:21 Review of Systems 2 Narrative: Constitutional symptoms: Negative except as documented in HPI. Skin symptoms: Negative except as documented in HPI. Eye symptoms: Negative except as documented in HPI. ENMT symptoms: Negative except as documented in HPI. Respiratory symptoms: Negative except as documented in HPI. Cardiovascular symptoms: Negative except as documented in HPI. Gastrointestinal symptoms: Negative except as documented in HPI. Genitourinary symptoms: Negative except as documented in HPI. Musculoskeletal symptoms: Negative except as documented in HPI. Neurologic symptoms: Negative except as documented in HPI. Psychiatric symptoms: Negative except as documented in HPI. Endocrine symptoms: Negative except as documented in HPI. PFSH ED 2 PFSH: Medical History Injury of finger of left hand Erectile dysfunction of organic origin On SILDENAFIL with no contraindications. Benefit noted. Low testosterone in male On TRT 200 mg every 10 to 14 days with good response and safe laboratory level in follow-up. Surgical History Hx of left knee surgery PCL repair Family History Father Suicide Social History Smoking and tobacco/nicotine status: never used tobacco/nicotine Second hand smoke exposure: Yes Alcohol intake: current Alcohol intake frequency: few times a week Alcohol type: beer and hard liquor Substance/Drug Use: never Adopted: No Caregiver/support person: No Lives independently: Yes Marital status: Current occupational status: employed Do you think of yourself as: Straight/Heterosexual Current gender identity: Male Physical Exam 2 Narrative: EXAM NARRATIVE: General: Alert, no acute distress. Skin: Warm, dry. Head: Normocephalic, atraumatic. Neck: Supple, trachea midline. Eye: Extraocular movements are intact. Ears, nose, mouth and throat: mucosa moist. Cardiovascular: Regular, Normal peripheral perfusion. Respiratory: Lungs are clear to auscultation, respirations are non-labored, breath sounds are equal, Symmetrical chest wall expansion. Gastrointestinal: Soft, Nontender, Non distended Musculoskeletal: Normal ROM, no deformity. Neurological: Alert and oriented, No focal neurological deficit observed. Psychiatric: Cooperative, appropriate mood & affect. Course 2 Vital Signs: Vital signs: Vital Signs Temperature 97.6 F 01/29/25 01:17 Pulse Rate 84 01/29/25 02:15 Respiratory Rate 17 01/29/25 02:15 Blood Pressure 112/73 01/29/25 02:06 Pulse Oximetry 93 01/29/25 02:15 Oxygen Delivery Me thod Room Air 01/29/25 01:17 MDM - Chest Pain Medical Decision Making Differential diagnosis for patient with chest pain includes but is not limited to and based on the above HPI, review of systems and physical exam: Pneumonia. unstable angina. angina. Acute coronary syndrome / [place]. Pulmonary embolism. Costochondritis / musculoskeletal. Pleurisy. Pericarditis. Esophageal spasm. Pancreatis. Cholecystitis. Orders placed to evaluate differential diagnosis based on the above differential, HPI and physical exam EKG: Time 1:17 AM. Rate 90. Normal sinus rhythm, No ST-T changes, no ectopy, normal ME & QRS intervals, This was reviewed and interpreted by myself the ER physician at 1:20 AM Chest x-ray: No acute process. No infiltrate. No pneumothorax. Films were interpreted by myself the emergency room provider and pending final radiology review. Lab Review: Laboratory results were reviewed and interpreted by myself the emergency room physician. No leukocytosis. No anemia. No renal failure. He does have some mild chronic renal insufficiency creatinine is 1.4 today which is slightly higher than his baseline of 1.2-1.3. Initial troponin is mildly elevated at 28. HEART Pathway for Early Discharge in Acute Chest Pain from [email or web address] on 01/29/2025 All calculations should be rechecked by clinician prior to use RESULT SUMMARY: 5 points HEART Pathway Score High risk 12-65% 30-day MACE Cardiology consultation and admission recommended. Further testing indicated. INPUTS: History ?> 2 = Highly suspicious EKG ?> 0 = Normal Age ?> 0 = <45 Risk factors ?> 2 = >= risk factors or history of atherosclerotic disease Initial troponin ?> 1 = 1-3x normal limit I reviewed the patient's medical record. Reexamination: Patient's pain has improved with multiple doses of nitroglycerin. Otherwise he has been stable. No tachycardia. No increased work of breathing. He was sleeping well on my return to the room. Consultation: I spoke with Dr. Constantino who agrees to admission. Assessment and plan: Chest pain Coronary artery disease -I discussed the patient with the hospitalist on-call who is admitting the patient. - Discussed findings and plan with patient. Answered any questions. - All laboratory values were reviewed and interpreted personally by myself, the ER physician - All imaging was reviewed and interpreted personally by myself, the ER physician. - Evaluation and treatment of this problem were appropriate in the emergency setting Lab Data 01/29/25 01:26 01/29/25 01:26 Laboratory Results WBC 8.13 10^3/uL (3.29-11.43) 01/29/25 01:26 RBC 5.70 10^6/uL (3.85-5.65) H 01/29/25 01:26 Hgb 15.90 g/dL (11.27-16.99) 01/29/25 01:26 Hct 49.1 % (37-53) 01/29/25 01:26 MCV 86.1 fl (82-101) 01/29/25 01:26 MCH 27.9 pg (27-33) 01/29/25 01:26 MCHC 32.4 g/dL (30-55) 01/29/25 01:26 RDW 15.9 % (12.1-15.1) H 01/29/25 01:26 Plt Count 247 10^3/cmm (157-399) 01/29/25 01:26 MPV 9.4 fL (7.4-10.4) 01/29/25 01:26 Neut % (Auto) 43.1 % 01/29/25 01:26 Lymph % (Auto) 38.9 % 01/29/25 01:26 [place] % (Auto) 12.2 % 01/29/25 01:26 Eos % (Auto) 4.7 % 01/29/25 01:26 Baso % (Auto) 0.6 % 01/29/25 01:26 Neut # (Auto) 3.51 10^3/uL (1.8-7.7) 01/29/25 01:26 Lymph # (Auto) 3.2 10^3/uL (0.8-4.8) 01/29/25 01:26 [place] # (Auto) 1.0 10^3/uL (0.2-0.9) H 01/29/25 01:26 Eos # (Auto) 0.4 10^3/uL (0.0-0.8) 01/29/25 01: Baso # (Auto) 0.1 10^3/uL (0.0-0.1) 01/29/25 01:26 Nucleated RBC % (auto) 0 % 01/29/25 01: Nucleated RBCs # 0.0 /100WBC 01/29/25 01:26 Sodium 139 mmol/L (136-145) 01/29/25 01:26 Potassium 3.5 mmol/L (3.5-5.1) 01/29/25 01: Chloride 99 mmol/L (98-107) 01/29/25 01: Carbon Dioxide 30 mmol/L (22-29) H 01/29/25 01:26 Anion Gap 13.5 (5-19) 01/29/25 01:26 BUN 13 mg/dL (6-20) 01/29/25 01:26 Creatinine 1.4 mg/dL (0.7-1.2) H 01/29/25 01:26 GFR Calculation 55.8 mL/min (90-130) L 01/29/25 01:26 Glucose 69 mg/dL (65-115) 01/29/25 01:26 Calculated Osmolality 286 mOsm/kg (285-295) 01/29/25:26 Calcium 9.5 mg/dL (8.5-10.5) 01/29/25 01:26 Total Bilirubin 0.4 mg/dL (0.15-1.2) 01/29/25: AST 23 U/L (0-40) 04/01/25 01:26 ALT 31 U/L (0-41) 01/29/25 01:26 Alkaline Phosphatase 74 U/L (40-130) 01/29/25 01:26 Troponin T Baseline 28 ng/L (0-15) H 01/29/25 01:26 NT-Pro-B Natriuret Pep < 36 pg/mL (0-125) 01/29/25 01:26 Total Protein 7.1 g/dL (6.6-8.7) 01/29/25 01:26 Albumin 4.5 g/dL (3.5-5.2) 01/29/25 01:26 Globulin 2.6 g/dL (1.3-4.6) 01/29/25 01:26 XR interpretation done by ED provider, pending radiology final review Clincial Decision Support The following clinical decision support tools were used to aid in care of the patient HEART Score -> History: Highly Suspicious, EKG: Normal, Age: Less than 45 yrs, Risk Factors: >/=3 Risk Factors, Troponin: Baseline Trop 16-45 ng/L. Resulting HEART Score: 5. Discharge Plan Discharge Patient Disposition: Placed in Observation Clinical Impression: Chest pain, Coronary artery disease Coding Level of Care Code ED Textile Supervisor for Gael Nino
[2025-01-29] MEDS: nitroglycerin 0.4 mg sublingual Tablet SUBLINGUAL ×2 (01:31→02:08)
[2025-01-29 01:32] LABS: Basophils # 0.1 10^3/uL (0.0-0.1); Basophils % 0.6 %; Eosinophils # 0.4 10^3/uL (0.0-0.8); Eosinophils % 4.7 %; Hematocrit 49.1 % (37-53); Lymphocytes # 3.2 10^3/uL (0.8-4.8); Lymphocytes % 38.9 %; Mean Corpuscular HGB Conc 32.4 g/dL (30-55); Mean Corpuscular Hemoglobin 27.9 pg (27-33); Mean Corpuscular Volume 86.1 fl (82-101); Mean Platelet Volume 9.4 fL (7.4-10.4); Monocytes % 12.2 %; Neutrophils # 3.51 10^3/uL (1.8-7.7); Neutrophils % 43.1 %; Nucleated Red Blood Cells % 0 %; Platelet Count 247 10^3/cmm (157-399); Red Cell Distribution Width 15.9 % (12.1-15.1); White Blood Count 8.13 10^3/uL (3.29-11.43)
[2025-01-29 01:50] LABS: Troponin(5th) Baseline 28 ng/L (0-15)
[2025-01-29 01:59] LABS: Alanine Aminotransferase 31 U/L (0-41); Albumin Level 4.5 g/dL (3.5-5.2); Alkaline Phosphatase 74 U/L (40-130); Anion Gap 13.5 (5-19); Aspartate Amino Transferase 23 U/L (0-40); Blood Urea Nitrogen 13 mg/dL (6-20); Calcium 9.5 mg/dL (8.5-10.5); Carbon Dioxide 30 mmol/L (22-29); Chloride 99 mmol/L (98-107); Creatinine Clr Calc Pharmacy 73.2356; Globulin 2.6 g/dL (1.3-4.6); Glomerular Filtration Rate 55.8 mL/min (90-130); Glucose 69 mg/dL (65-115); NT Pro B Type Natriuretic Pept < 36 pg/mL (0-125); Osmolality Calculated 286 mOsm/kg (285-295); Potassium 3.5 mmol/L (3.5-5.1); Sodium 139 mmol/L (136-145); Total Bilirubin 0.4 mg/dL (0.15-1.2); Total Protein 7.1 g/dL (6.6-8.7)
--- NOTE | 2025-01-29 02:05 | P.HP_ITS ---
Providers/Chief Complaint 2 Admitting Physician: Hiral Constantino MD Primary Care Provider: Dinh Farfan MD Chief Complaint: Chest Pains History of Present Illness Trust Operations Assistant: Dr. Rodríguez in [facility] Beka Guidry is a 39 year old male w/ GERD and Asthma controlled as a child, CAD s/p stent x 1 in approximately 2021 while he was working in [place] (on Prasugrel), chronic CHF, who presented to the ED in the early hours of 01/29/2025 w/ complaints of L. non-pleuritic, non-positional sided chest pain. The patient states that he went to [facility] yesterday, and while walking around the mall, he developed L. sided chest pain that radiated up his L. jaw. Associated symptoms include diaphoresis, SOB. He denies f/c, dizziness, light headedness, palpitations, symptoms. He vomitted after lunch at [employer], but felt that it was something that he ate. He also denied abdominal pain. In the ED his vital signs were within normal limits, except for elevated blood pressures of 149/96 mmHg. His labs are significant for creatinine of 1.4. His CXR showed no acute findings, and his EKG showed sinus bradycardia the patient was given 0.4 mg of NTG x 2. he was given 1 mg of Dilaudid IVP, and Zofran 4 mg IVP x 1 immediately prior to arrival on the floor. According to his admitting nurse on the floor, the patient promptly vomited despite the Dilaudid and Zofran administered in the ED, so he was given another 10 mg dose of IV Compazine, which resolved his symptoms. Review of Systems 2 Const: Denies: fever(s) or chills Eyes: Denies: change in vision Card: Reports: chest pain; Denies: palpitations, lightheadedness or syncope GI: Reports: nausea and vomiting; Denies: abdominal pain, diarrhea, constipation, hematochezia or melena : Denies: difficulty urinating, dysuria, urinary frequency, urinary urgency or hematuria Musc: Reports: other (no myalgias); Denies: joint pain (leg pain) Skin/Breast: Denies: rash or new lesions Neuro: Denies: dizziness Psych: Reports: anxiety; Denies: depression, suicidal ideation or homicidal ideation Endo: Denies: cold intolerance or heat intolerance Ming/Lymph: Reports: easy bruising and easy bleeding Medications/Allergies Home Medications ?Medication ?Instructions ?Recorded ?Confirmed ?Last Taken ?Type aspirin 81 mg tablet,delayed 81 mg PO DAILY 06/29/23 0 12/10/24 01/02/24 History release (Adult Low Dose Aspirin) isosorbide dinitrate 30 mg tablet 30 mg PO BID 3 12/10/24 01/02/24 History prasugrel HCl 10 mg tablet 10 mg PO DAILY 06/29/2308/2412/31/23 History pantoprazole 40 mg tablet,delayed 40 mg PO BID 6 weeks #84 tabs 12/08/23 12/10/24 01/02/24 Rx release (Protonix) cetirizine 10 mg tablet 10 mg PO DAILY 01/02/2412/0101/02/24 History olmesartan 20 mg tablet 20 mg PO DAILY 01/02/2412/0101/02/24 History ondansetron 4 mg disintegrating 4 mg PO QID PRN Nausea And Vomiting 01/02/24 12/10/24 Unknown History tablet ranolazine 1,000 mg 1,000 mg PO BID 01/02/2408/2401/02/24 History tablet,extended release,12 hr rosuvastatin 40 mg tablet 40 mg PO DAILY 01/02/2412/0101/02/24 History nitroglycerin 0.4 mg sublingual 0.4 mg sublingual Q5M PRN 02/19/24 12/10/24 Unknown History tablet albuterol sulfate 90 mcg/actuation 2 puff inhalation Q ID PRN 05/13/24 12/10/24 Unknown Rx aerosol inhaler Shortness Of Breath Or Wheez ing #8.5 grams fluticasone propionate 50 2 spray intranasal BID nasal 05/13/24 12/10/24 Unknown Rx mcg/actuation nasal congestion #16 grams spray,suspension (Flonase Allergy Relief) alprazolam 0.5 mg tablet (Xanax) 0.5 mg PO BID PRN 04/2312/10/24 Unknown History furosemide 40 mg tablet (Lasix) 40 mg PO QAM 09/05/24 12/10/24 Unknown History testosterone enanthate 200 mg/mL IM 09/05/24 12/10/24 Unknown History intramuscular syringe ezetimibe 10 mg tablet (Zetia) 10 mg PO DAILY 11/14/24 12/10/24 Unknown History Allergies Allergy/AdvReac Type Severity Reaction Status Date / Time morphine Allergy rash Verified 01/29/25 01:21 PFSH Acute 2 PFSH: Medical History (Updated 01/29/25 @ 06:53 by Hiral Constantino MD) Injury of finger of left hand Erectile dysfunction of organic origin On SILDENAFIL with no contraindications. Benefit noted. Low testosterone in male On TRT 200 mg every 10 to 14 days with good response and safe laboratory level in follow-up. Surgical History (Updated 01/29/25 @ 06:53 by Hiral Constantino MD) History of percutaneous coronary intervention s/p stent in 2021. Last coronary angiogram in 03/2024 Hx of left knee surgery PCL repair Family History Father Suicide Social History (Updated 01/29/25 @ 06:55 by Hiral Constantino MD) Smoking and tobacco/nicotine status: former use of tobacco/nicotine Quit status (tobacco/nicotine): has quit using Year quit tobacco: 2021 Former quit date comment: smoked 0.3ppd since age 14 until 2021. Second hand smoke exposure: Yes Alcohol intake: former Substance/Drug Use: current Substance/Drug use frequency: few times a week Substance/Drug use type: Marijuana Adopted: No Caregiver/support person: No Lives independently: Yes Marital status: Current occupational status: employed Do you think of yourself as: Straight/Heterosexual Current gender identity: Male Vitals/I&O/Wt Last Vital Signs Temp 97.6 F 01/29/25 01:17 Pulse 74 01/29/25 01:36 Resp 12 01/29/25 01:36 BP 149/96 01/29/25 01:36 Pulse Ox 95 01/29/25 01:36 O2 Del Method Room Air 01/29/25 01:17 01/28/25 01/28/25 01/29/25 14:59 22:59 06:59 Intake Total 0 / 0 Balance 0 / 0 Weight last 48 hrs Weight 90.718 kg Physical Exam 2 Narrative: Constitutional: GENERAL APPEARANCE: cooperative, comfortable ; not combative, not disheveled, HENT: HEAD & SCALP: normocephalic and atraumatic; NOSE: external nose not normal EXTERNAL EAR: no external ears normal MOUTH: Normal oral and palatal mucosa present THROAT: posterior oropharynx normal Eye: PERRL, EOMI, normal conjunctiva b/l Neck: normal visual inspection, trachea midline, No anterior neck swelling, No tracheal deviation, No tracheostomy present, no submandibular swelling, Thyroid normal , cervical ROM normal Lymph: no cervical, supraclavicular LAD Resp: no use of accessory muscles, CTAB, no w/r/r Cardio: RRR, no m/r/g, or clicks. 2+ radial and DP pulses. GI: normoactive bowel sounds, non-tender, non-distended, no guarding, no rigidity, no rebound tenderness, no hepatosplenomegaly. : No Lozada in place draining urine Back/Pelvis: Deferred Extremity: No clubbing, No cyanosis and No edema Neuro: AO to person, place and time. CN normal except as noted. Normal gait present. 5/5 motor strength present throughout. Normal motor muscle tone present throughout. No tremor noted. No motor abnormalities present. No motor fasciculations present Psych: APPEARANCE: Yes grossly normal ATTITUDE: Yes calm and Yes engaged ACTIVITY/MOTOR BEHAVIOR: Yes appropriate eye contact SPEECH: Yes normal speech MOOD & AFFECT: Yes euthymic mood THOUGHT PROCESS: Normal thought process present THOUGHT CONTENT: Yes Normal thought content present ATTENTION/CONCENTRATION: Yes attention grossly intact MEMORY/COGNITION: Yes memory grossly intact Data 01/29/25 01:26 01/29/25 01:26 A&P Assessment and plan (1) Chest pain: Plan Beka Guidry is a 39 year old male w/ GERD and Asthma controlled as a child, CAD s/p stent x 1 in approximately 2021 while he was working in [place] (on Prasugrel), chronic CHF, who presented to the ED in the early hours of 01/29/2025 w/ complaints of L. non-pleuritic, non-positional sided chest pain. In the ED his vital signs were within normal limits, except for elevated blood pressures of 149/96 mmHg. His labs are significant for creatinine of 1.4. #Angina chest pain: #CAD s/p 1 stent - Consulted Cardiology. Patient on Telemetry. - F/u A1c, TSH, lipid panel. Trop T down trended. #Possible hx of chronic HFrEF vs HFpEF: F/u ECHO #Potential MECHE: Continue to monitor. #Partially controlled Asthma: Uses his inhaler 3-4x/week. Resumed his home albuterol; although, I do wonder whether it is really asthma, or his admitted anxiety. - Resumed albuterol inhaler #Anxiety d/o: I counseled him on initiating a longer acting medication such as Lexapro, and bridging initiation and titration of Lexapro with the continuation of alprazolam. I encouraged him to inform the day hospitalist if he is interested in the initiation of Lexapro, to which he agreed. #GERD: Resume home medication #Cannabis use d/o: Counselled him against this #Why is he on testosterone? PDMP PDMP Reviewed: Not Reviewed Attestations 2 Medical Necessity Statement*: The patient is admitted on observation status for his anginal chest pain. Diagnoses Chest pain R07.9
[2025-01-29] MEDS: ondansetron 2 mg/ML SDV 2 mL 4 MG IVP (03:00)
[2025-01-29] MEDS: HYDROmorphone 0.5 MG/0.5 ML INJ 1 MG IVP (03:00)
--- NOTE | 2025-01-29 03:18 | ECG_ITS ---
[employer] 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
[2025-01-29 03:44] LABS: Troponin 5 2HR 27.67 ng/L (0-15)
[2025-01-29 03:45] LABS: Troponin 5 2HR Delta -0.33 ABS# (0-10)
[2025-01-29] MEDS: prochlorperazine 10 mg/2 mL Inj IVP (04:16)
[2025-01-29 07:45] LABS: Troponin 5 6HR 22.04 ng/L (0-15)
[2025-01-29 07:46] LABS: Troponin 5 6HR Delta -5.96 ng/L (0-12)
[2025-01-29 08:13] LABS: Chol HDL Ratio 5.43 mg/dL (1.0-5.00); Cholesterol 152 mg/dL (0-200); HDL Cholesterol 28 mg/dL (60-100); LDL Cholesterol Calculated 63 mg/dL (50-129); LDL HDL Ratio 2.25 RATIO (0.00-3.22); Triglycerides 307 mg/dL (0-150)
--- NOTE | 2025-01-29 08:35 | ECG_ITS ---
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1985 Requested By: Kristyn Duncan Order Number: [id number] Jason MD: FRANDY REICH Measurements Intervals [place] Rate: 47 P: 45 RI: 184 QRS: 18 QRSD: 116 T: 52 QT: 408 QTc: 362 Interpretive Statements SINUS BRADYCARDIA MODERATE INTRAVENTRICULAR CONDUCTION DELAY [110+ ms QRS DURATION] Compared to ECG 01/29/2025 02:46:40 Intraventricular conduction delay now present Sinus rhythm no longer present Myocardial infarct finding no longer present Electronically Signed On 02-03-2025 21:52:04 CDT by FRANDY REICH [email or web address]
[2025-01-29 08:44] LABS: Estmated Average Glucose 120; Hemoglobin A1C 5.8 % (4.0-6.0)
--- NOTE | 2025-01-29 08:44 | USCV_ITS ---
Beka Guidry Age: 39 Gender: M : 1985 Exam Date: 01/29/2025 10:10 Ordering Phys: Hiral Constantino MD Technologist: AMELIA [place] [facility] [place] BP: / HR: 62 Rhythm: Sinus Technical Quality: Adequate MEASUREMENTS (Male / Female) Normal Values 2D ECHO LV Diastolic Diameter PLAX 5.0 cm 4.2 - 5.9 / 3.9 - 5.3 cm IVS Diastolic Thickness 1.1 cm 0.6 - 1.0 / 0.6 - 0.9 cm IVS Systolic Thickness 1.8 cm LVPW Diastolic Thickness 1.0 cm 0.6 - 1.0 / 0.6 - 0.9 cm LVPW Systolic Thickness 1.8 cm LVOT Diameter 2.0 cm LV Ejection Fraction 2D Teich 56.4 % LV Ejection Fraction MOD 4C 66.4 % LV Ejection Fraction MOD 2C 58.7 % LV Ejection Fraction 2C AL 61.9 % LA Diameter 3.6 cm RA Systolic Volume 4C AL 17.5 ml RA Systolic Volume 4C MOD 16.2 ml LA Sys Volume AL 23.6 cm cubed LA Sys Volume Index AL 11.3 cm cubed/m squared Aorta at Sinotubular Diameter 3.0 cm IVC Diameter 2.1 cm M-MODE LA Ao Ratio MM 1.8 AV Cusp Separation MM 1.3 cm DOPPLER AV Peak Velocity 122.0 cm/s LVOT Peak Velocity 117.0 cm/s AV Area Cont Eq vti 3.2 cm squared AV Area Cont Eq pk 3.2 cm squared MV Peak Velocity 85.0 cm/s MV Area PHT 4.4 cm squared Mitral E to A Ratio 3.8 TR Peak Velocity 104.0 cm/s TR Peak Gradient 4.3 mmHg TV Peak E Velocity 75.0 cm/s PV Peak Velocity 104.0 cm/s FINDINGS Left Ventricle Normal left ventricular size, systolic function and wall thickness, with no regional wall motion abnormalities. Left ventricular ejection fraction is estimated at 60 %. Grade I/IV diastolic dysfunction (abnormal relaxation filling pattern), normal to mildly elevated filling pressures. Right Ventricle The right ventricle is normal in size and function. Right Atrium The right atrium is normal in size. Left Atrium The left atrium is normal in size. Mitral Valve Moderately thickened mitral valve. Aortic Valve Moderate aortic valve calcification. Trace aortic valve regurgitation. Tricuspid Valve Structurally normal tricuspid valve without significant stenosis or regurgitation. Pulmonary artery systolic pressure is normal. Pulmonic Valve Structurally normal pulmonic valve without significant stenosis. There is no pulmonic regurgitation. Pericardium Normal pericardium without effusion. Aorta Normal ascending aorta dimension. IVC The inferior vena cava appears normal. CONCLUSIONS Normal left ventricular size, systolic function and wall thickness, with no regional wall motion abnormalities. Left ventricular ejection fraction is estimated at 60 %. Grade I/IV diastolic dysfunction (abnormal relaxation filling pattern), normal to mildly elevated filling pressures. There is no pericardial effusion. No significant valve abnormalities. Right atrial pressure is around 5 mm of mercury. Quinten Russell MD (Electronically Signed) Final Date: 29 January 2025 16:39 S
[2025-01-29] MEDS: aspirin 325 mg Tablet PO (09:39)
[2025-01-29] MEDS: pantoprazole 40 mg SDV IVP (09:39)
[2025-01-29] MEDS: prasugrel 10 MG Tablet PO (09:39)
--- NOTE | 2025-01-29 09:54 | P.CONIM_ITS ---
<Statement entered by Mikey Parnell M.D - 01/30/25 10:50> Patient was evaluated and cared for in conjunction with an advanced practice practitioner.? I personally examined the patient and reviewed the chart and all pertinent data including imaging, telemetry, and laboratory results.? I discussed the patient in detail with the advanced practice practitioner.? Please see? their note for complete consult note, testing results and agreed upon plan of care for the patient. We will proceed with stress test to rule out ischemia as had moderate disease on cath last year. GENERAL: Patient is alert, awake and oriented x3. HEART: Regular S1 and S2 LUNGS: Clear to auscultate bilaterally. CENTRAL NERVOUS SYSTEM: Grossly nonfocal. EXTREMITIES: Lower extremities with out edema bilaterally. Providers/Reason For Consult 2 Consulting Physician/Specialty*: Dr. Parnell Reason for Consult*: Chest pain Requesting Physician: Dr. Constantino Attending Physician: Jordyn Mcpherson MD Primary Care Provider: Dinh Farfan MD History of Present Illness History of Present Illness This is a very pleasant 39-year-old gentleman who has a history of CAD status post stent about 2 years ago in [place] per patient who follows Dr. Chen in [place]. He presented to the emergency room this morning around 1:00 with a chief complaint of left upper chest pain that radiates to his neck and arm. He describes this as pressure. He states that he took a nitro which did not really help much. He states that he has been dealing with angina for at least 2 years. He does state this was slightly different and described as a pressure. He denies any aggravating or relieving factors. He states that it occurred randomly when he was sitting down. He stated it started yesterday all day and continued to progress and so he came into the emergency room. He denies any associated nausea or vomiting with this. He states that he had a left heart cath in February 2024 due to similar issues by Dr. Chen at [place]. I did receive a verbal report from his nurse practitioner showed a 30% LAD in which FFR was negative, jailed first diagonal stent, nondominant left circumflex, 40 to 50% mid RCA lesion. He was treated medically at that time. Echo on December 2023 showed EF of 60 to 65%. We will request official records. At this time he states that he has some tenderness to the left upper chest area but overall chest pain is improved significantly since he came in. EKG showed no acute ST or T wave abnormalities. Troponins were slightly elevated but not trending upward with delta negative at 2827-22. Blood pressure appears well-controlled. Creatinine is slightly elevated at 1.4. Review of Systems 2 Narrative: Consitutional: denies fever, chills, body aches, or changes in appetite, denies abnormal weight loss Eyes: Denies changes in vision Card: Reports improving left upper chest tenderness, palpitations, irregular heart rhythm, edema, syncope, shortness of breath, orthopnea, leg pain with exertion Resp: Denies shortness of breath, denies hemoptysis, denies cough GI: denies abdominal pain, denies nausea or voimting, denies blood in stool : denies blood in urine, denies dysuria Musc: Reports left upper chest tenderness Skin: Denies rash, lesions, or wounds, denies changes to skin color Neuro: Denies nubmness in extremities, h/a, s/s of stroke Ming: Denies easy bruiding/bleeding Medications/Allergies Home Medications ?Medication ?Instructions ?Recorded ?Confirmed ?Last Taken ?Type aspirin 81 mg tablet,delayed 81 mg PO PRN 06/29/2311/2401/28/25 History release (Adult Low Dose Aspirin) prasugrel HCl 10 mg tablet 10 mg PO DAILY 06/29/2311/2401/28/25 History pantoprazole 40 mg tablet,delayed 40 mg PO BID 6 weeks #84 tabs 12/08/23 01/29/25 01/02/24 Rx release (Protonix) cetirizine 10 mg tablet 10 mg PO DAILY 01/02/240 11/2401/28/25 19:00 History olmesartan 20 mg tablet 10 mg PO DAILY 01/02/240 11/2401/28/25 History ranolazine 1,000 mg 1,000 mg PO BID 01/02/2411/2401/28/25 History tablet,extended release,12 hr rosuvastatin 40 mg tablet 40 mg PO DAILY 01/02/240 11/2401/28/25 19:00 History nitroglycerin 0.4 mg sublingual 0.4 mg sublingual Q5M PRN heart 02/19/24 01/29/25 01/28/25 History tablet symptoms albuterol sulfate 90 mcg/actuation 2 puff inhalation Q ID PRN 05/13/24 01/29/25 Unknown Rx aerosol inhaler Shortness Of Breath Or [place] ing #8.5 grams fluticasone propionate 50 2 spray intranasal BID nasal 05/13/24 01/29/25 Unknown Rx mcg/actuation nasal congestion #16 grams spray,suspension (Flonase Allergy Relief) furosemide 40 mg tablet (Lasix) 40 mg PO QAM 09/05/24 01/29/25 01/28/25 History cholecalciferol (vitamin D3) 125 125 mcg PO DAILY 11/2401/29/25 01/28/25 History mcg (5,000 unit) tablet (Vitamin D3) cinnamon bark 500 mg capsule 1,000 mg PO DAILY 5 01/29/25 01/28/25 History (Cinnamon) empagliflozin 10 mg tablet 10 mg PO DAILY 01/29/2511/2401/28/25 History (Jardiance) garlic 1,000 mg capsule 1,000 mg PO DAILY 01/29/25 0 01/29/25 01/28/25 History isosorbide mononitrate 30 mg 30 mg PO BID 01/29/2511/2401/28/25 History tablet,extended release 24 hr lorazepam 1 mg tablet 1 mg PO BEDTIME PRN anxiety 01/29/25 01/29/25 Unknown History magnesium 250 mg tablet 250 mg PO DAILY 01/29/2511/2401/28/25 History multivit,calcium,min-folic acid 1 tab PO DAILY 5 01/29/25 01/28/25 History 240 mcg-D3 25 mcg-lycop 300 mcg tablet (One A Day Men Complete) omega-3 fatty acids-fish oil 684 1 cap PO DAILY 01/29/25 01/28/25 History mg-1,200 mg capsule,delayed release testosterone cypionate 200 mg/mL 1 mg IM Q14D 01/29/25 01/29/25 01/28/25 History intramuscular oil Allergies Allergy/AdvReac Type Severity Reaction Status Date / Time morphine Allergy rash Verified 01/29/25 01:21 Current Medications Generic Name Dose Route Start Last Admin Trade Name Zay PRN Reason Stop Dose Admin Pantoprazole Sodium 40 mg 01/29/25 09:00 01/29/25 09:39 Pantoprazole 40 Mg Sdv IVP 40 mg Q12H KHLOE Administration Prasugrel 10 mg 01/29/25 09:00 01/29/25 09:39 Prasugrel 10 Mg Tablet PO 10 mg DAILY KHLOE Administration PFSH Acute 2 PFSH: Medical History (Updated 01/29/25 @ 10:00 by Angeles Jane NP) Injury of finger of left hand Erectile dysfunction of organic origin On SILDENAFIL with no contraindications. Benefit noted. Low testosterone in male On TRT 200 mg every 10 to 14 days with good response and safe laboratory level in follow-up. Surgical History (Updated 01/29/25 @ 06:53 by Hiral Constantino MD) History of percutaneous coronary intervention s/p stent in 2021. Last coronary angiogram in 03/2024 Hx of left knee surgery PCL repair Family History Father Suicide Social History (Updated 01/29/25 @ 06:55 by Hiral Constantino MD) Smoking and tobacco/nicotine status: former use of tobacco/nicotine Quit status (tobacco/nicotine): has quit using Year quit tobacco: 2021 Former quit date comment: smoked 0.3ppd since age 14 until 2021. Second hand smoke exposure: Yes Alcohol intake: former Substance/Drug Use: current Substance/Drug use frequency: few times a week Substance/Drug use type: Marijuana Adopted: No Caregiver/support person: No Lives independently: Yes Marital status: Current occupational status: employed Do you think of yourself as: Straight/Heterosexual Current gender identity: Male Vitals/I&O/Wt Last Vital Signs Temp 97.7 F 01/29/25 07:34 Pulse 59 L 01/29/25 07:34 Resp 18 01/29/25 07:30 BP 126/68 01/29/25 07:34 Pulse Ox 96 01/29/25 08:44 O2 Del Method Nasal Cannula 01/29/25 08:44 O2 Flow Rate 2 01/29/25 08:44 01/28/25 01/29/25 01/29/25 22:59 06:59 14:59 Intake Total 0 / 0 Balance 0 / 0 Weight last 48 hrs Weight 201 lb 9.6 oz Weight 200 lb Physical Exam 2 Narrative: General: No apparent distress, healthy appearing, well nourished HENMT: normoceophalic Neck: No carotid bruit bilaterally Muskuloskeletal: slight chest tenderness to the left side of chest wall Lymphatic: no lymphedema noted Respiratory: Normal respiratory effort, clear to auscultation bilaterally throughout all lung arzola, no use of accessory muscles Cardio: No JVD, regular rate, regular rhythm, S1 S2 normal, no murmurs, peripheral pulses 2+ radial palpated bilaterally GI: Normal to inspection, nondistended Extremities: Full ROM, normal, normal capillary refill, no cyanosis or edema Neuro: Alert and oriented x4, no focal motor deficits Psych: Affect normal, denies suicidal ideation, mental status grossly normal Skin: No rashes or lesions noted, no wounds Data 01/29/25 01:26 01/29/25 01:26 A&P Assessment and plan (1) Chest pain: Qualifiers: Chest pain type: unspecified Qualified Code(s): R07.9 - Chest pain, unspecified (2) Coronary artery disease: Qualifiers: Associated angina: with stable angina Coronary Disease-Associated Artery/Lesion type: [place] artery [place] vs. transplanted heart: [place] heart Qualified Code(s): I25.118 - Atherosclerotic heart disease of [place] coronary artery with other forms of angina pectoris Plan At this time patient's creatinine is 1.4. This chest pain appears to have been going on and an issue for quite some time and symptoms are a mix of typical and atypical without aggrivating or relieving factors. Troponin is stable. EKG without ischemic changes. Also had a fairly recent heart cath that was diagnostic. Given these things, it would be reasonable to proceed with a stress test. If this is abnormal, patient will need to proceed with left heart cath. Echo is being done as well. Will continue to monitor for worsening signs or symptoms and EKG changes. We will plan on trying to get the stress test done in the morning. NPO after midnight. Agree with continuing aspirin and Effient. Thank you for allowing us to care for this very pleasant gentleman. PDMP PDMP Reviewed: Not Reviewed Coding Level of Care Code Acute Code for Chg Fwd Diagnoses Chest pain, unspecified type R07.9 Chest pain type: unspecified Coronary artery disease of [place] artery of [place] heart with stable angina pectoris I25.118 Associated angina: with stable angina Coronary Disease-Associated Artery/Lesion type: [place] artery [place] vs. transplanted heart: [place] heart
--- NOTE | 2025-01-29 12:21 | PM.MISC ---
Miscellaneous Note Purpose of Documentation: Overnight labs and H&P reviewed. Reviewed cardiology notes. Plan for stress test tomorrow morning.
[2025-01-29] MEDS: ranolazine (12HR) 500 mg Tablet 1000 MG PO (20:24)
[2025-01-29] MEDS: isosorbide mononitrate ER 30 mg Tablet PO (20:24)
[2025-01-29] MEDS: pantoprazole DR 40 mg Tablet PO (20:24)
[2025-01-29] MEDS: sennosides 8.6 mg Tablet 17.2 MG PO (20:24)
--- NOTE | 2025-01-29 21:00 | PC.NURSE ---
This nurse rounded on patient at the beginning of the shift, the patient's girlfriend and mother was present in the room then the girlfriend started to yell at this sports writer that he needs all his home medication right now that he has not got any of this today, this sports writer listened to the concern and stated that I will go call the doctor about what we can restart back up but a lot of the time the doctor hold certain medication for various reasons while they are in the hospital. This nurse left the room and called the MD, the MD order back the ones that seemed fit, and explained he has a new elevated PARTNER level, that she doesn't want the kidney function to get worse, all information was relied back to patient and the medications the MD ordered was given at that time.
--- NOTE | 2025-01-30 02:56 | PC.NURSE ---
patient came to nurses station stating that the bathroom door was locked and if we could unlock it, credit underwriter informed patient that his neighbor that shares the bathroom was currently in the bathroom, a urinal and bedside commode was present in the room. The TUBING MILL SETTER went down to go check on the neighboring room. Then the patient went and hit the door sanchez to be let out of the unit to go find a bathroom, while attempting to open the door the patient is jerking on the door handle when it finally opened and the door came jerking to the wall, at that point was security was called saying a male patient left the floor and security returned with patient and patient's . at that point both the patient and the is yelling and cussing at this credit underwriter and security, the other nurse heard the yelling and came to see if everything was ok, patient kept yelling I'm fucking leaving now, I'll go down to [place], where I can have my own fucking bathroom. The girlfriends was yelling at security why did you come looking for him he just had to pee . The credit underwriter tried to calm patient and girlfriend down, the patient quit yelling and cussing but the girlfriend continued on this is stupid we should have to ask to use the bathroom this credit underwriter replied that you do not have to ask but the bathroom is shared the patient expressed he would still like to leave, and to please take out the IV, this credit underwriter left to go get a AMA form and to grab the stuff to take out the IV, return down to the room and house sup was now present and security still present, patient went to sign the AMA form and the girlfriend yelled saying do not sign that, the patient did not sign the paperwork and this nurse removed his IV. They collected their belongings and house sup walked them back to the ER where their car was located. The MD was notified of of them leaving AMA.
--- NOTE | 2025-01-30 03:45 | PC.NURSE ---
Nurse aid responded to patients complaint in room 3 about the locked bathroom door.This nurse aid went down to room 4 to see if patient is in the bathroom and the patient was using it and almost finished when I arrived. This Nurse aid helped assist the patient from the bathroom to the bed when I heard all the yelling going on in the pop and the room next door.
--- NOTE | 2025-01-30 03:47 | PC.NURSE ---
This RN was called to U by security @ [id number] due to pt disturbance. Upon entering room 103, yelling by a female was heard from down the hallway. Security was standing outside the room and nursing at bedside. Pt was up in room pacing and girlfriend was sitting in chair yelling at staff. When this RN asked that was going on, girliend continued yelling at staff, this RN looked at pt and asked what the matter was. Pt stated I had to use the bathroom and the fucking door is locked and I shouldn't have to share a bathroom. This RN offered to bring pt to a different bathroom, pt stated I've already went! I shouldn't have to wait to use the bathroom when your giving me water pills! This RN attempted to explain that we can offer other alternatives to suit the pt if he preferred. Pt girlfriend then stated Its too late! We don't want to stay in this shit hole anyway! We will go down to [place] where we have a bathroom to use and there isnt a senior security engineer walking into the females bathroom! By this time, primary RN had AMA paper at bedside, pt began to sign paperwork and girlfriend stated Dont sign that! They are kicking us out! This RN again looked at pt and stated we are not kicking you out, you are more than welcome to stay. Girlfriend again spoke for pt and stated No we are leaving. Primary RN took out pt IV, pt and girlfriend packed belongings and this RN escorted them out to the ER door. During the walk, this RN stated explain to me again what had happened . Pt stated he walked to the nurses station and asked that they unlock the bathroom door. Staff told him that the connecting room was using the bathroom. This RN asked if he had a call light available instead of having to walk to the nurses station Yeah, but I wrapped it around by bedrail and it was on the floor, I don't like using them. This RN asked if a urinal was provided to the pt, pt stated no, I tried to get out the door and they sent security after me. Girlienaudrey then stated the senior security engineer went into the female bathroom while she was in a stall and she knew it was him because she saw his shoes. Girlfriend stated that she was going to get a strategy associate because security was invading her privacy while she was in the bathroom. This RN apologized to pt and girlfriend and left them in the ER parking lot with their vehicle. Upon arriving back to pt room, this RN saw urinal in window sill, bedside commode under window sill and bathroom door was unlocked. This RN asked security if he had entered any female bathroom, security stated No, I was looking for a male pt. I went into the male bathroom across from GI, no one was in there so I went to the bathrooms by vending. The girlfriend was standing in the hallway waiting for him. When he was done, we walked back to his room .
--- NOTE | 2025-01-30 03:56 | PM.MISC ---
Miscellaneous Note Note: I received a voalte message from the patient's night nurse, Nasima, that the patient decided to leave AMA and would not sign the paperwork. I immediately went to the patient's room, and he was gone. According to the night nurse, the patient was upset that he had to wait to use the restroom, so he left the room to go and find a place to use the restroom. He returned to the nurses station in his unit, and was so upset that security and the yard warehouse worker was called. According to the nurse, he was upset that he could not have his own independent bathroom with his room. He stated that he preferred to go to [facility], where his occupational therapy aides teacher is based, so that he can have his own bathroom with his hospital room. Per [place], his fiance urged him not to sign the AMA paperwork, and the patient left the hospital.
== END 2025-01-30 02:55 | disposition left against medical advice (07) ==
LOC: ER 02:29 → CSU 03:40
PROVIDERS: Admitting Provider Internal Medicine; Emergency Provider Emergency Medicine; PCP Family Medicine; Visit Provider Student in an Organized Health Care Education/Training Program
DX: R07.9 Chest pain, unspecified (principal); I25.118 Atherosclerotic heart disease of native coronary artery with other forms of angina pectoris; Z79.82 Long term (current) use of aspirin; Z87.891 Personal history of nicotine dependence; F12.90 Cannabis use, unspecified, uncomplicated; Z53.29 Procedure and treatment not carried out because of patient's decision for other reasons
CPT/HCPCS: 36415; 71045; 80053; 80061; 83036; 83880; 84443; 84484; 85025; 93005; 93306; 94664; 96374; 96375; 96376; 99285; G0378; J0780; J1171; J2405; J2470; J9999

== ENCOUNTER 2025-05-13 14:05 | Outpatient (RCR) | payer BC, MEDICAID, SELFPAY | END 2025-05-30 23:59 | disposition home or self-care (01) | LOC: SPT 14:05 | PROVIDERS: PCP Family Medicine; Visit Provider Orthopaedic Surgery Adult Reconstructive Orthopaedic Surgery | DX: M25.562 Pain in left knee (principal); G89.29 Other chronic pain | CPT/HCPCS: 97110; 97161 ==

== ENCOUNTER → 2025-05-26 10:21 | Outpatient (BNVA) | payer BC, SELFPAY | PROVIDERS: PCP Family Medicine; Visit Provider Nurse Practitioner | DX: J02.9 Acute pharyngitis, unspecified (principal) | CPT/HCPCS: 87880 ==

== ENCOUNTER 2025-05-31 05:00 | Outpatient (RCR) | payer BC, MEDICAID, SELFPAY | END 2025-06-30 23:59 | disposition home or self-care (01) | LOC: SPT 05:00 | PROVIDERS: PCP Family Medicine; Visit Provider Orthopaedic Surgery Adult Reconstructive Orthopaedic Surgery | DX: M25.562 Pain in left knee (principal); G89.29 Other chronic pain | CPT/HCPCS: 97110 ==